=== PATIENT | male | born 1960 | race Caucasian/White ===

== ENCOUNTER → 2020-05-22 09:22 | Outpatient (BNVA) | payer MEDICAID, SELFPAY | PROVIDERS: PCP Nurse Practitioner Family; Referring Provider Nurse Practitioner Family; Visit Provider Urology | DX: N43.3 Hydrocele, unspecified (principal); K40.90 Unilateral inguinal hernia, without obstruction or gangrene, not specified as recurrent | CPT/HCPCS: 81001 ==

== ENCOUNTER 2020-05-23 06:37 | Outpatient (CLI) | payer MEDICAID, SELFPAY ==
--- NOTE | 2020-05-23 | US_ITS ---
WS: [id number] ULTRASOUND ABDOMEN LIMITED CLINICAL INFORMATION: CHOLESTEROLOSIS OF GALLBLADDER COMPARISON: None. FINDINGS: Liver Size: Normal. Craniocaudal length: 11.9 cm. Echogenicity: Normal. Surface nodularity: None. Mass (size and location): None. Bile ducts Intrahepatic ducts: Normal. Common bile duct diameter: 0.3 cm. Gallbladder Sludge or polyps Gallbladder wall thickening: None. Pericholecystic fluid: None. Sonographic Webb sign: Absent. Pancreas Normal as visualized. Right kidney: Normal. Hydronephrosis: None. Size: 10.5 cm x 4.9 cm x 4.7 cm. Abdominal aorta and IVC Visualized portions are normal. Ascites: None. US/US gall bladder 30003 IMPRESSION: 1. Liver is normal. 2. Gallbladder is contracted. 3. Gallbladder sludge with sludge balls or small polyps. No dense shadowing ch olelithiasis. 4. Normal common bile duct. 5. Normal right kidney.
--- NOTE | 2020-05-23 07:03 | US_ITS ---
WS: [id number] SCROTAL ULTRASOUND EXAMINATION CLINICAL INFORMATION: HYDROCELE,HERNIA COMPARISON: None. FINDINGS: TESTES Normal in size and echotexture, without focal lesion. Color Doppler: Normal color Doppler flow pattern. Right testes size: 3.0 cm x 2.4 cm x 2.6 cm. Left testes size: 3.8 cm x 2.7 cm x 2.4 cm. EPIDIDYMIDES Normal in size and echotexture, without focal lesion. Color Doppler: Normal color Doppler flow pattern. Right epididymis size: 2.0 cm x cm x cm. Left epididymitis size: 1.0 cm x cm x cm. HYDROCELE Very large right hydrocele measuring 8.0 x 4.6 x 10.8 cm. VARICOCELE None. OTHER FINDINGS None. US/US scrotum 00469 IMPRESSION: 1. Very large right hydrocele measuring 8.0 x 4.6 x 10.8 cm. 2. Testicles are otherwise unremarkable.
== END 2020-05-23 06:38 | disposition home or self-care (01) ==
PROVIDERS: PCP Nurse Practitioner Family; Visit Provider Urology
DX: N43.3 Hydrocele, unspecified (principal); K82.4 Cholesterolosis of gallbladder
CPT/HCPCS: 76705; 76870

== ENCOUNTER → 2020-05-26 09:44 | Outpatient (BNVA) | payer MEDICAID, SELFPAY | PROVIDERS: PCP Nurse Practitioner Family; Visit Provider Urology | DX: N43.3 Hydrocele, unspecified (principal); K40.90 Unilateral inguinal hernia, without obstruction or gangrene, not specified as recurrent | CPT/HCPCS: 81001 ==

== ENCOUNTER 2020-06-19 09:27 | Day surgery (SDC) | payer MEDICAID, SELFPAY ==
[2020-06-16 11:54] VITALS: BMI 22.2
[2020-06-19 09:56] VITALS: BP 162/92; PULSE 75; RESP 16; TEMP 36.9; O2SAT 97
[2020-06-19] MEDS: sodium chloride 0.9% 1,000 ML 30 ML IV (10:12)
--- NOTE | 2020-06-19 10:15 | ANES.PREANE2 ---
Pre-Anesthetic Assessment Pre-Anesthetic Assessment: Height/Weight: Height 1.78 m Weight 70.307 kg Temp Pulse Resp BP Pulse Ox 98.4 F 75 16 162/92 97 06/19/20 09:56 06/19/20 09:56 06/19/20 09:56 06/19/20 09:56 06/19/20 09:56 Preop Diagnosis: Symptomatic right hydrocele Proposed Procedure: Operation Date: 06/19/20 12:00 Proposed Procedures p Laparoscopic Poss Open Inguinal Hernia Repair w/Mesh 37590 K40.90(Not Applicable) - Xavier Lorenzo MD s Hydrocele Repair(Right) - James Gray MD Familial anesthetic complications: None Was Beta Jean taken within 24 hours: N/A Last intake: Intake Last Liquid Date 06/18/20 Last Liquid Time 16:00 Last Solid Date 06/18/20 Last Solid Time 16:00 Social: Social History: Tobacco Comment: smoked this morning Exam: Pre-Anes Outpt Exam: alert, oriented x 3, clear to auscultation bilaterally and regular rate & rhythm Additional Exam Findings (including area of procedure): B/L wheezing Airway: Cervical ROM: WNL MP: 1 Dentition: Other (edentulous) Pulmonary: Pulmonary: SOB CV/HEM: CV/HEM: CAD (4 years ago - not on blood thinners), HTN and ND Neuropsych: Neuropsych: Neuropathy Anesthetic Plan: ASA status: 2 Anesthesia: General Risk of > 500 ml blood loss (7ml/kg in children): No Meds/Allergies Current Medications: Current Medications Generic Name Dose Route Start Last Admin Trade Name Freq PRN Reason Stop Dose Admin Sodium Chloride 1,000 mls @ 30 ml s/hr 06/19/20 07:30 06/19/20 10:12 Sodium Chloride 0.9% IV 06/20/20 07:29 30 mls/hr .Q24H PHILLIP Administration PFSH Anesthesia PFSH: Medical History COPD (chronic obstructive pulmonary disease) Hypertension Left inguinal hernia Right hydrocele Surgical History H/O circumcision H/O heart artery stent H/O left knee surgery Hx of tonsillectomy Family History Father Cancer LUNG Hypertension Denies family history of Anesthesia complication Bleeding disorder Social History Smoking and tobacco status: current every day smoker cigarettes Alcohol intake: former Lives independently: Yes Marital status: Current occupational status: disabled History of recent travel: No Data Anesthesia Cardiac Studies: No Data to Display
[2020-06-19] MEDS: vancomycin 1,000 MG in sodium chloride 0.9% 250 ML 250 MG IV (11:32)
--- NOTE | 2020-06-19 11:48 | W.PM.OPSUD ---
Surgery/Procedure H&P Update DATE OF PROCEDURE: June 19, 2020 DATE H&P PERFORMED: 05/26/20 H&P UPDATE INFORMATION: I have reviewed H&P completed within last 30 days, I have examined patient prior to procedure and No changes to prior documentation PREOP DIAGNOSIS: Symptomatic right hydrocele PLANNED PROCEDURE: Operation Date: 06/19/20 12:00 Proposed Procedures p Laparoscopic Poss Open Inguinal Hernia Repair w/Mesh 99395 K40.90(Not Applicable) - Xavier Lorenzo MD s Hydrocele Repair(Right) - James Gray MD
--- NOTE | 2020-06-19 12:05 | P.HPUD_ITS ---
Surgery/Procedure H&P Update DATE OF PROCEDURE: June 19, 2020 DATE H&P PERFORMED: 05/26/20 H&P UPDATE INFORMATION: I have reviewed H&P completed within last 30 days, I have examined patient prior to procedure, No changes to prior documentation and H&P is in [facility] EMR on date indicated CHANGES TO PREVIOUS DOCUMENTATION: Doing concurrently with Dr. Lorenzo for his left inguinal hernia repair. PREOP DIAGNOSIS: Symptomatic right hydrocele PLANNED PROCEDURE: Operation Date: 06/19/20 12:00 Proposed Procedures p Laparoscopic Poss Open Inguinal Hernia Repair w/Mesh 98736 K40.90(Not Applicable) - Xavier Lorenzo MD s Hydrocele Repair(Right) - James Gray MD
--- NOTE | 2020-06-19 12:06 | PM.OP ---
Operative Report Date of procedure: June 19, 2020 Pre-op Diagnosis: Symptomatic right hydrocele Post-op Diagnosis: Multiple large right spermatocele Procedure Done: Spermatocele ectomy x3, right Pathology: none sent Surgeon: Isaac Anesthesia: General Estimated blood loss: 25 cc Urine output: Not measured Complications: None Condition: stable Disposition: other (Turned over to Dr. Lorenzo for his portion of the procedure) Brief History: Demetrius is a very pleasant 60-year-old white male who presented to me with a history of dramatic right hydrocele increasingly over several years. Ultrasound showed no evidence of testicular parenchymal pathology and he ultimately elected to go ahead and proceed with surgical repair. He also has been known to have a left inguinal hernia that would periodically become incarcerated with pain. Dr. Lorenzo is scheduled to do a repair of that hernia under the same anesthesia following my completion of the hydrocele repair. Procedure: After routine preoperative evaluation examination and obtaining of informed consent he was taken to the operating suite on 06/19/2020 where general anesthesia was administered without difficulty after appropriate timeout was performed, SCDs confirmed to be functioning, preoperative antibiotics administered, beta-davian protocol confirmed. Prepped and draped in usual sterile fashion in supine position pain careful attention to avoiding pressure points. A median raphae incision was made over the right hemiscrotal contents (hydrocele) and the incision was taken down through the skin dartos down to the tunica vaginalis. A pocket small enough to accommodate the testicle was made in the superficial space external to the tunica vaginalis. The tunica vaginalis was opened large enough to anirudh the testicle through it. Careful inspection revealed no significant pathology. Tunica vaginalis what was discovered was a spermatocele sac there was excised down to the base. He had 2 other spermatoceles that were excised with combination of sharp and blunt dissection. There is actually no hydrocele. Careful inspection revealed complete hemostasis. The testicle was then introduced into anatomic position and copiously irrigated with saline solution. The incision was closed in layers utilizing 3-0 Vicryl for the dartos subcutaneous layer interrupted fashion and then subcuticular 4-0 Monocryl for the skin. Exofin skin glue was then applied. Scrotal support was placed at the completion of Dr. Lorenzo's procedure. He was turned over to Dr. Lorenzo for his hernia repair. PLANS: 1. Follow-up in 2 to 3 weeks for postop check
[2020-06-19 14:23] VITALS: BP 142/90; PULSE 93; RESP 20; TEMP 36.3; O2SAT 97
[2020-06-19 14:30] VITALS: BP 151/97; PULSE 84; RESP 27; O2SAT 97
[2020-06-19 14:35] VITALS: BP 161/94; PULSE 89; RESP 22; TEMP 36.4; O2SAT 97
[2020-06-19 14:49] VITALS: BP 155/95; PULSE 84; RESP 18; TEMP 36.1; O2SAT 94
--- NOTE | 2020-06-19 14:56 | PM.OP ---
Operative Report Date of procedure: June 19, 2020 Pre-op Diagnosis: Symptomatic reducible left inguinal hernia Post-op Diagnosis: Direct and indirect left inguinal hernia Procedure Done: Laparoscopic total extraperitoneal repair of left direct and indirect inguinal hernia with SurgiMax 3D 15 x 11 cm mesh Pathology: none sent Surgeon: Xavier Lorenzo Anesthesia: General Estimated blood loss (mL): 20 Condition: stable Disposition: PACU Procedure: The patient was taken to the operating room. After IV antibiotic was administered, the abdomen was prepped and draped in a sterile manner. Using a 15 blade, a 1.0 cm transverse incision was made infraumbilically on the left side. Subcutaneous tissue was divided using electrocautery and the anterior rectus sheath divided using an 11 blade. The rectus muscle was retracted laterally and the extraperitoneal space identified. A 11 mm port was placed and 12 mm of pneumoperitoneum was created. A 10 mm 30? scope was introduced and the retrorectus space was opened using the camera up to the pubic symphysis and 5 mm ports were placed in the midline, one 2-fingerbreadths above the pubic symphysis and the other midway between these two ports under direct visualization. Blunt dissection was carried out to open up the tissue in the midline and to the pubic symphysis, which was identified. The dissection was then carried laterally where the iliopubic tract was identified. There was no femoral or obturator hernia noted. There was a direct hernia noted which was partially incarcerated and reduced. The inferior epigastric artery was identified and dissection was carried posterior to it and laterally, the space was opened up to the level of the umbilicus superior to the anterior superior iliac spine. I then proceeded to dissect out the spermatic cord and the indirect hernial sac was reduced . 15 x 11cm SurgiMax 3D mesh was rolled and introduced through the 10 mm port and then rolled laterally and apposed well against the abdominal wall to cover the myopectineal orifice completely. 10 Cc of 0.5% Marcaine was infiltrated into the preperitoneal space. The extraperitoneal space was desufflated under direct visualization to ensure no slippage of hernial sac under the mesh. All ports were removed, the anterior rectus fascia at the infraumbilical port closed using figure of eight 0 Vicryl sutures, subcutaneous tissue approximated using 3-0 Vicryl sutures and skin at all three port sites were closed using running subcuticular 4-0 Monocryl sutures and Dermabond. 10 mL of 0.5% Marcaine was infiltrated at the port sites. The patient was stable throughout the procedure.
[2020-06-19 15:35] VITALS: BP 145/95; PULSE 80; RESP 18; O2SAT 96
[2020-06-19] MEDS: HYDROcodone-acetaminophen 5-325 mg Tablet 1 TAB PO (15:45)
== END 2020-06-19 16:15 | disposition home or self-care (01) ==
PROVIDERS: Urology; PCP Nurse Practitioner Family; Visit Provider Surgery
PROC: (CPT 49650; principal; 2020-06-19 12:00)
PROC: (CPT 55060; 2020-06-19 12:00)
DX: N43.3 Hydrocele, unspecified (principal); N43.42 Spermatocele of epididymis, multiple; I25.10 Atherosclerotic heart disease of native coronary artery without angina pectoris; J44.9 Chronic obstructive pulmonary disease, unspecified; I10 Essential (primary) hypertension; I25.2 Old myocardial infarction; G62.9 Polyneuropathy, unspecified; F17.210 Nicotine dependence, cigarettes, uncomplicated
CPT/HCPCS: 54840; 12345; 88304; C1781; J0131; J1100; J2405; J2704; J2710; J2765; J3010; J3370; J3490; J7030; J7050

== ENCOUNTER 2020-11-21 12:35 | Outpatient (CLI) | payer MEDICAID, SELFPAY ==
--- NOTE | 2020-11-21 12:56 | ECG_ITS ---
[facility] Test Date: 2020-11-21 Pat Name: Demetrius Hinkle Department: Room: Gender: Male Employee [employer] Rn: : 1960 Requested By: Venessa Pisano Order Number: [id number] Deisy MD: Venessa Pisano M.D. Interpretive Statements NAME OF STUDY: TREADMILL STRESS TEST INDICATION: CAD, CDL clearance Baseline blood pressure of 136/80 mm Hg, heart rate 62 beats per minute. EKG showed normal sinus rhythm with normal ST and T's. The patient exercised for 3 minutes on a standard Brennen protocol. Patient attained a maximum heart rate of 157 beats per minute( 98 % of the maximum predicted heart rate) with a blood pressure at the peak exercise of 173/80 mm Hg. The EKG at the peak exercise revealed sinus tachycardia with 1/2 -[address] depression in inferolateral leads. This does not meet diagnostic crieteria for ischemia. Patient did not have any chest pain or any significant arrhythmis with the exercise. During the recovery phase, there were no new changes. Blood pressure at the end of the recovery phase was 168/87 mm Hg with a heart rate of 93 beatsp er minute. CONCLUSION: 1. Normal EKG response to treadmill exercise. 2. No exercise-induced chest pain or cardiac arrhythmia. 3. Decreased exercise tolerance, attained a maximum of 4.6 METs. 4. Baseline normal blood pressure with normal response to exercise. Electronically Signed On 11-23-2020 13:19:39 STATOR CONNECTOR by Venessa Pisano M.D. [id number]
[2020-11-21 12:59] VITALS: BMI 23.9
[2020-11-21 13:31] VITALS: BP 139/88; PULSE 98
== END 2020-11-21 12:36 | disposition home or self-care (01) ==
LOC: CDL 12:36
PROVIDERS: PCP Nurse Practitioner Family; Visit Provider Internal Medicine Cardiovascular Disease
DX: I25.10 Atherosclerotic heart disease of native coronary artery without angina pectoris (principal)
CPT/HCPCS: 93017

== ENCOUNTER 2020-11-29 08:08 | Outpatient (CLI) | payer MEDICAID, SELFPAY ==
[2020-11-29 08:43] VITALS: BMI 22.9
--- NOTE | 2020-11-29 08:43 | NMCV_ITS ---
NM yamil perf SPECT r/s* [id number] Demetrius Hinkle Age: 60 Gender: M : 1960 Exam Date: 11/29/2020 09:59 Ordering Phys: Venessa Pisano MD ([email or web address]) Technologist: NARAYAN Powell Exam Location: [facility] Indications: CAD STRESS TEST Please see separate stress test report in [facility] for full findings IMAGE PROTOCOL Rest/Stress 1 Lexiscan Day Radiopharmaceutical Dose (mCi) Administration Site Administered by Rest: Tc-99m 10.9 IV NARAYAN Amato Sestamibi Stress:Tc-99m 32.7 IV NARAYAN Amato Sestamibi Rest: 29-Nov-2020 60 Discovery 630 Stress: 29-Nov-2020 30 Discovery 630 0.4mg Lexiscan. Images obtained in supine and prone position. SPECT RESULTS Technical Quality: Excellent Raw Data Analysis: Normal Image Corrections: No attenuation or motion correction applied Summed Stress Score: 4 Summed Rest Score: 0 Summed Difference Score: 4 PERFUSION FINDINGS Small sized perfusion abnormality of mild severity of mid to apical inferior navarro on rest images with subtle reversibility in supine stress images with slightly improved tracer uptake in prone stress images. This is likely suggestive of diaphragmatic/subdiaphragmatic attenuation artifact. FUNCTIONAL RESULTS (calculated via Gated SPECT) Stress Image LV EF (%): 60 Stress EDV (mL):113 TID: 1.21 Stress ESV (mL):45 FUNCTIONAL FINDINGS: The left ventricle is normal in size. Transient Ischemia Dilatation of 1.2. There is normal left ventricular systolic function. The left ventricular ejection fraction is normal with a value of 60%. There is normal left ventricular wall thickening. Normal end-diastolic end-systolic volumes. IMPRESSIONS 1. Small sized perfusion abnormality of mild severity of mid to apical inferior navarro with subtle reversibility in mid inferior wall with somewhat improved tracer uptake in prone stress images. 2. This is likely suggestive of diaphragmatic/subdiaphragmatic attenuation artifact. However old myocardial infarction in right coronary artery territory with very small immanuel-infarct ischemia cannot be completely excluded based on the study. 3. Overall left ventricular systolic function is normal without regional wall motion abnormalities, LVEF= 60%. 4. Transient ischemic dilation index mildly elevated at 1.2. This may represent hypertensive response/subendocardial ischemia. 5. No prior similar studies to compare. Venessa Pisano MD (Electronically Signed) Final Date: 29 November 2020 13:38 Amended: 29 November 2020 13:46 C
--- NOTE | 2020-11-29 08:43 | ECG_ITS ---
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 Interpretive Statements NAME OF STUDY: LEXISCAN SESTAMIBI STRESS TEST INDICATION: CDL clearance, abnormal ETT PROCEDURE: At the baseline, the blood pressure was 117/86 mmHg with a heart rate of 55 bpm. The electrocardiogram showed normal sinus rhythm, normal axis with normal ST and T's. The Lexiscan was infused over a period of 20 seconds. A total of 0.4 milligrams of Lexiscan was infused. The stress phase was continued for a total of 5 minutes. Heart rate at the end of the stress phase was 97 with a blood pressure 137/73 mmHg and oxygen saturation 98%. The EKG at the peak infusion revealed sinus rhythm with no significant ST-T wave changes. Sestamibi was injected 20 seconds after the Lexiscan infusion. Blood pressure at the end of the recovery phase was 130/66 mmHg, oxygen saturation 98% with a heart rate of 85 beats per minute. CONCLUSION: 1. Normal EKG response to LexiScan infusion. 2. No LexiScan induced chest pain or cardiac arrhythmia. 3. Normal blood pressure and heart rate response. 4. Sestamibi/sestamibi perfusion scan pending; see separate report. Electronically Signed On 11-29-2020 13:03:56 OPERATING TABLE ASSEMBLER by Venessa Pisano M.D. [id number]
[2020-11-29] MEDS: regadenoson 0.4 Mg/5 ml Syringe IVP (10:28)
[2020-11-29 10:40] VITALS: BP 130/66; PULSE 92
== END 2020-11-29 08:09 | disposition home or self-care (01) ==
LOC: RAD 08:11 → CDL 08:42
PROVIDERS: PCP Nurse Practitioner Family; Visit Provider Internal Medicine Cardiovascular Disease
DX: I25.10 Atherosclerotic heart disease of native coronary artery without angina pectoris (principal)
CPT/HCPCS: 78452; 93017; A9500; J2785

== ENCOUNTER 2023-05-16 06:51 | Emergency (ER) | payer MEDICAID, SELFPAY ==
[2023-05-16 07:01] VITALS: BP 137/90; PULSE 84; RESP 21; O2SAT 96
--- NOTE | 2023-05-16 07:13 | XR_ITS ---
WS: [id number] XR ribs RT mn 3V w CXR1V [id number] REASON FOR EXAM: right rib pain after fall FINDINGS: Marked tortuosity and ectasia of the thoracic aorta. Heart size is within normal limits. Chronic interstitial changes in the lung bases. No acute pulmonary parenchymal or pleural abnormality. Mild thoracic scoliosis. No acute rib fracture identified. XR/XR ribs RT mn 3V w CXR1V [id number] IMPRESSION: No acute abnormality.
--- NOTE | 2023-05-16 07:13 | CT_ITS ---
WS: [id number] CT HEAD NONCONTRAST HISTORY: fall with LOC TECHNIQUE: Contiguous axial imaging performed through the brain in 2.5 mm imaging. Bone and soft tiss ue windows. Sagittal and coronal reformats reviewed. All CT scans at [facility] use at least one of these dose optimization techniques: automated exposure control; mA and/or kV adjustment per pa tient size (includes targeted exams where dose is matched to clinical indication); or iterative recon struction. DLP: 974.37 mGy.cm COMPARISON: None available. No acute intracranial hemorrhage, midline shift or mass effect. Mild atrophy and small vessel ischemic changes. Ventricles: Normal size with no hydrocephalus. Dural venous sinuses are dense but this is probably physiologic or related to hydration status. Paranasal sinuses: As visualized are clear. Mastoid air cells: Well pneumatized. Calvarium and scalp: Skull is intact with no soft tissue edema or swelling. CT/CT head wo con* [id number] IMPRESSION: 1. No acute intracranial hemorrhage or edema. 2. Mild atrophy and small vessel ischemic disease.
--- NOTE | 2023-05-16 07:14 | W.ED.GENADLT ---
HPI - General Adult General: Chief complaint: General Medical Stated complaint: Right side pain, Hurts to breath Time Seen by Provider: 05/16/23 07:04 History of Present Illness: Patient is a 63-year-old male that comes to the ED with right rib pain. Past medical history of COPD and hypertension. Approximately 2 days ago patient was jumping off a 20 to 30 foot ledge into some water. Patient says he slipped while going to jump and he ended up rolling down the side of the ledge and into the water. He denies any free fall. He reports brief loss of consciousness and states that he woke up when he hit the water. Since fall injury he has had right rib pain that he rates a 9 out of 10. Pain worsens if he takes deep breath or coughs. He has not had anything for pain before coming to the ED. Denies any headache, vision changes or neurological symptoms such as numbness tingling or weakness to 1 side of face or body. Associated symptoms: Deny chest pain, dyspnea, headache(s), nausea, rash, palpitations or vomiting Review of Systems Const: Denies: fever(s), chills or fatigue Eyes: Denies: change in vision or eye discomfort ENMT: Denies: throat pain, odynophagia, nasal discharge or nasal congestion Card: Denies: chest pain, palpitations, edema, swelling of feet/ankles, dyspnea on exertion or orthopnea Resp: Reports: wheezing and pain on inspiration (Right-sided pain); Denies: dyspnea, productive cough or non-productive cough GI: Denies: abdominal pain, nausea, vomiting, diarrhea, constipation or hematochezia : Denies: flank pain, difficulty urinating, dysuria or hematuria Musc: Reports: other (Right rib pain); Denies: neck pain, back pain or extremity swelling Skin/Breast: Denies: rash or new lesions Neuro: Reports: other (Head injury with positive loss of consciousness); Denies: headache(s), numbness in extremities or weakness in extremities PFSH ED PFSH: Medical History COPD (chronic obstructive pulmonary disease) Coronary artery disease Hyperlipidemia Hypertension Left inguinal hernia Right hydrocele Surgically repaired June 2020. No complications. Did well no further work-up indicated Smoker Surgical History H/O circumcision H/O heart artery stent H/O left knee surgery History of hydrocelectomy Hx of tonsillectomy Family History Father Cancer LUNG Hypertension Denies family history of Anesthesia complication Bleeding disorder Social History Smoking and tobacco status: current every day smoker cigarettes Alcohol intake: former Substance/Drug Use: current Substance/Drug use frequency: daily Lives independently: Yes Marital status: Current occupational status: disabled Physical Exam Const: COMMON NORMALS: no acute distress, patient oriented x3 and alert GENERAL APPEARANCE: cooperative HENMT: COMMON NORMALS: normocephalic HEAD & SCALP: normocephalic MOUTH: Normal oral and palatal mucosa present THROAT: posterior oropharynx normal and uvula midline Eye: COMMON NORMALS: Equal, round and reactive pupils present and EOMs intact bilaterally GENERAL EYE: appearance normal, both eyes and all related structures PUPIL: Yes Equal, round and reactive pupils present Neck/C-Spine: COMMON NORMALS: supple GENERAL: Yes normal visual inspection Lymph: LYMPHATIC: no lymphadenopathy noted Chest: CHEST: Yes tenderness rib right mid-axillary line involving the 5th rib, involving the 6th rib and involving the 7th rib Resp: COMMON NORMALS: normal respiratory effort, No retractions and No use of accessory muscles AUSCULTATION: wheezes expiratory wheezes and throughout Cardio: COMMON NORMALS: regular rate, regular rhythm, S1 normal heart sound present, S2 normal heart sound present, No gallops present (Cardio), No clicks present (Cardio), No murmurs present (Cardio) and Peripheral pulses 2+ throughout RATE: regular rate RHYTHM: regular rhythm HEART SOUNDS: S1 normal heart sound present and S2 normal heart sound present PERIPHERAL PULSES: Peripheral pulses 2+ throughout GI: COMMON NORMALS: Normal to inspection, nondistended, normoactive bowel sounds present, Soft to palpation, non-tender and no masses PALPATION: Yes Soft to palpation : COMMON NORMALS: Yes no CVA tenderness BLADDER/KIDNEY EXAM: Yes no CVA tenderness Back/Pelvis: COMMON NORMALS: no CVA tenderness Extremity: GENERAL: Yes normal exam except as noted Neuro: COMMON NORMALS: patient oriented x3, CN's II-XII intact bilaterally, moves all extremities, no focal motor deficits and no sensory deficits noted SENSORIUM/ORIENTATION: Yes alert SENSORY EXAM: Yes extremities (intact) MOTOR EXAM: 5/5 motor strength present throughout Skin: COMMON NORMALS: no rashes or lesions noted GENERAL SKIN EXAM: no rashes or lesions noted and dry skin Course Vital Signs: Vital signs: Vital Signs Pulse Rate 103 H 05/16/23 10:09 Respiratory Rate 26 H 05/16/23 10:09 Blood Pressure 162/117 05/16/23 10:09 Pulse Oximetry 96 05/16/23 10:09 Oxygen Delivery Me thod Room Air 05/16/23 08:32 [facility] - General Adult Medical Decision Making Patient is a 63-year-old male that comes to the ED with right rib pain. Past medical history of COPD and hypertension. Approximately 2 days ago patient was jumping off a 20 to 30 foot ledge into some water. Patient says he slipped while on ledge and he ended up rolling down the side of the ledge and into the water. He denies any free fall. He reports brief loss of consciousness and states that he woke up when he hit the water. Since fall injury he has had right rib pain that he rates a 9 out of 10. Pain worsens if he takes deep breath or coughs. He has not had anything for pain before coming to the ED. Denies any headache, vision changes or neurological symptoms such as numbness tingling or weakness to 1 side of face or body. Vitals are stable. Patient has some right-sided rib tenderness to palpation. Expiratory wheezing throughout lungs bilaterally. Neuro exam shows no deficits. Rest of exam is benign. CBC and CMP are unremarkable. EKG shows sinus rhythm, [address] segment elevation or depression seen. CT of head showed no acute findings. Right rib x-ray showed no acute rib fractures or acute findings in lungs. Patient was given pain meds here in the ED and a DuoNeb breathing treatment. He was stable for discharge home and diagnosed with right rib pain and minor head injury with loss of consciousness. He was discharged home with incentive spirometer and prescriptions for albuterol inhaler, hydrocodone, ibuprofen and a muscle relaxer. Strict return to ED precautions given. Follow-up with PCP in the next week for reevaluation. Patient understood and agreed with plan. Lab Data I reviewed the patient's lab results. 05/16/23 08:41 05/16/23 08:[address] 05/16/23 07:13 IMPRESSION: 1. No acute intracranial hemorrhage or edema. 2. Mild atrophy and small vessel ischemic disease. Ribs X-Ray 05/16/23 07:13 IMPRESSION: No acute abnormality. Laboratory Results WBC 6.2 10^3/uL (4.0-10.0) 05/16/23 08:41 RBC 5.89 10^6/uL (4.1-5.3) H 05/16/23 08:41 Hgb 19.1 g/dL (11.7-16.6) H 05/16/23 08:41 Hct 56.0 % (42.0-52.0) H 05/16/23 08:41 MCV 95.1 fl (80-94) H 05/16/23 08:41 MCH 32.4 pg (28.0-34.0) 05/16/23 08:41 MCHC 34.1 g/dL (30.0-36.0) 05/16/23 08:41 RDW 18.1 % (12.1-15.1) H 05/16/23 08:41 Plt Count 178 10^3/cmm (130-400) 05/16/23 08:41 MPV 9.5 fL (7.4-10.4) 05/16/23 08:41 Neut % (Auto) 77.2 % 05/16/23 08:41 Lymph % (Auto) 12.7 % 05/16/23 08:41 Slope % (Auto) 8.4 % 05/16/23 08:41 Eos % (Auto) 0.0 % 05/16/23 08:41 Baso % (Auto) 0.6 % 05/16/23 08:41 Neut # (Auto) 4.75 10^3/uL (1.8-7.7) 05/16/23 08:41 Lymph # (Auto) 0.8 10^3/uL (0.8-4.8) 05/16/23 08:41 Slope # (Auto) 0.5 10^3/uL (0.2-0.9) 05/16/23 08:41 Eos # (Auto) 0.0 10^3/uL (0.0-0.8) 05/16/23 08:41 Baso # (Auto) 0.0 10^3/uL (0.0-0.1) 05/16/23 08:41 Nucleated RBC % (auto) 0 % 05/16/23 08:41 Nucleated RBCs # 0.0 /100WBC 05/16/23 08:41 Sodium 138 mmol/L (136-145) 05/16/23 08:41 Potassium 4.4 mmol/L (3.5-5.1) 05/16/23 08:41 Chloride 100 mmol/L (98-107) 05/16/23 08:41 Carbon Dioxide 23 mmol/L (22-29) 05/16/23 08:41 Anion Gap 19.4 (5-19) H 05/16/23 08:41 BUN 4 mg/dL (8-23) L 05/16/23 08:41 Creatinine 0.8 mg/dL (0.7-1.2) 05/16/23 08:41 GFR Calculation 97.6 mL/min (90-130) 05/16/23 08:41 Glucose 109 mg/dL (65-115) 05/16/23 08:41 Calculated Osmolality 283 mOsm/kg (285-295) L 05/16/23 08:41 Calcium 8.6 mg/dL (8.5-10.5) 05/16/23 08:41 EKG Data EKG 1: EKG interpretation date: 05/16/23 Interpretation: Sinus rhythm, 69 bpm, no ST segment elevation or depression seen. Computer generated interpretation: Head CT 05/16/23 07:13 IMPRESSION: 1. No acute intracranial hemorrhage or edema. 2. Mild atrophy and small vessel ischemic disease. Ribs X-Ray 05/16/23 07:13 IMPRESSION: No acute abnormality. Discharge Plan Discharge Patient Disposition: Home Clinical Impression: Rib pain on right side Minor head injury with loss of consciousness Qualifiers: Encounter type: initial encounter Qualified Code(s): S06.9X9A - Unspecified intracranial injury with loss of consciousness of unspecified duration, initial encounter Condition: Stable Prescriptions: New methocarbamol 750 mg tablet 750 mg PO TID PRN (Reason: Muscle spasms and pain) Qty: 30 0RF albuterol sulfate 90 mcg/actuation HFA aerosol inhaler 2 inh inhalation Q6H PRN (Reason: shortness of breath or wheezing) Qty: 8.5 0RF ibuprofen 800 mg tablet 800 mg PO TID PRN (Reason: pain) Qty: 30 0RF No Action naproxen sodium 220 mg capsule 220 mg PO Q12H isosorbide mononitrate 30 mg tablet extended release 24 hr 30 mg PO DAILY aspirin 81 mg tablet,delayed release (DR/EC) 81 mg PO DAILY metoprolol tartrate 25 mg tablet 25 mg PO BID atorvastatin 40 mg tablet 40 mg PO DAILY lisinopril 2.5 mg tablet 2.5 mg PO DAILY Discharge Orders: Discharge ED (Routine); Ordered 05/16/23 Ordered By: Napoleon Hathaway Referrals: Jens,CORINA LaceyP [Primary Care Provider] - Discharge Diet: Regular Discharge Activity: Increase activity as tolerated Patient Instructions: Head Injury (ED), Opioid Safety, Fractures - Rib Activity Restrictions/Additional Instructions: Follow-up with medical provider as directed in the next 5 to 7 days for reevaluation. Use incentive spirometer multiple times every couple hours throughout the day to help prevent pneumonia. Take medications as prescribed. Return to the ER or your medical provider if condition worsens. Please read and understand discharge instructions. Thank you for choosing [facility] for your healthcare needs today. Please realize this is an emergency room and that we are providing you with a medical screening exam and this may not be complete and all inclusive of all the testing and or work up that you may need to determine your ailment or severity of your illness. It is very important that you follow up as instructed or that you return to the Emergency Department should you have concerns or if your condition changes or worsens in any way. Coding Level of Care Code ED Windows Application Administrator for Elin Larios
[2023-05-16] MEDS: morphine 4 mg/mL SDV 1 mL IM (07:37)
[2023-05-16 07:47] VITALS: BP 150/116; PULSE 90; RESP 18; O2SAT 95
--- NOTE | 2023-05-16 08:10 | ECG_ITS ---
[facility] Test Date: 2023-05-16 Pat Name: Demetrius Hinkle Department: Room: Gender: Male Target Developer: : 1960 Requested By: Napoleon Hathaway Order Number: [id number] Olivas MD: Daniel Morrow M.D. Measurements Intervals [place] Rate: 69 P: 52 RI: 128 QRS: 72 QRSD: 90 T: 59 QT: 376 QTc: 405 Interpretive Statements SINUS RHYTHM WITH SINUS ARRHYTHMIA No previous ECG available for comparison Electronically Signed On 05-16-2023 16:14:56 CDT by Daniel Morrow M.D. [id number]
[2023-05-16] MEDS: ipratropium-albuterol 3 mL Neb 6 ML INHALATION (08:22)
[2023-05-16 08:25] VITALS: PULSE 95; RESP 18; O2SAT 97
[2023-05-16 08:32] VITALS: BP 164/104; PULSE 73; RESP 22; O2SAT 96
[2023-05-16 08:35] VITALS: PULSE 73
[2023-05-16] MEDS: methocarbamol 750 mg Tablet PO (08:42)
[2023-05-16 08:53] LABS: Basophils % 0.6 %; Hemoglobin 19.1 g/dL (11.7-16.6); Lymphocytes # 0.8 10^3/uL (0.8-4.8); Lymphocytes % 12.7 %; Mean Corpuscular HGB Conc 34.1 g/dL (30.0-36.0); Mean Corpuscular Hemoglobin 32.4 pg (28.0-34.0); Mean Corpuscular Volume 95.1 fl (80-94); Mean Platelet Volume 9.5 fL (7.4-10.4); Monocytes # 0.5 10^3/uL (0.2-0.9); Monocytes % 8.4 %; Neutrophils # 4.75 10^3/uL (1.8-7.7); Neutrophils % 77.2 %; Nucleated Red Blood Cells % 0 %; Platelet Count 178 10^3/cmm (130-400); Red Blood Count 5.89 10^6/uL (4.1-5.3); Red Cell Distribution Width 18.1 % (12.1-15.1); White Blood Count 6.2 10^3/uL (4.0-10.0)
[2023-05-16 09:11] LABS: Anion Gap 19.4 (5-19); Blood Urea Nitrogen 4 mg/dL (8-23); Calcium 8.6 mg/dL (8.5-10.5); Carbon Dioxide 23 mmol/L (22-29); Chloride 100 mmol/L (98-107); Creatinine Clr Calc Pharmacy 92.5085; Glomerular Filtration Rate 97.6 mL/min (90-130); Glucose 109 mg/dL (65-115); Osmolality Calculated 283 mOsm/kg (285-295); Potassium 4.4 mmol/L (3.5-5.1); Sodium 138 mmol/L (136-145)
[2023-05-16] MEDS: oxyCODONE-APAP 5-325 mg Tablet 1 TAB PO (09:34)
[2023-05-16] MEDS: ondansetron 2 mg/ML SDV 2 mL 4 MG IM (09:47)
[2023-05-16 10:09] VITALS: BP 162/117; PULSE 103; RESP 26; O2SAT 96
== END 2023-05-16 10:13 | disposition home or self-care (01) ==
PROVIDERS: Emergency Provider Physician Assistant; PCP Nurse Practitioner Family
DX: S06.899A Other specified intracranial injury with loss of consciousness of unspecified duration, initial encounter (principal); R07.81 Pleurodynia; W15.XXXA Fall from cliff, initial encounter; Z79.82 Long term (current) use of aspirin; F17.210 Nicotine dependence, cigarettes, uncomplicated; J44.9 Chronic obstructive pulmonary disease, unspecified; I25.10 Atherosclerotic heart disease of native coronary artery without angina pectoris; E78.5 Hyperlipidemia, unspecified; I10 Essential (primary) hypertension
CPT/HCPCS: 36415; 70450; 71101; 80048; 85025; 93005; 94640; 96372; 99285; J2270; J2405

== ENCOUNTER → 2024-08-06 08:57 | Outpatient (BNVA) | payer MEDICAID, SELFPAY | PROVIDERS: PCP Nurse Practitioner Family; Referring Provider Nurse Practitioner Family; Visit Provider Surgery | DX: K92.2 Gastrointestinal hemorrhage, unspecified (principal); R63.4 Abnormal weight loss; K52.9 Noninfective gastroenteritis and colitis, unspecified | CPT/HCPCS: 99204 ==

== ENCOUNTER 2024-08-23 06:44 | Day surgery (SDC) | payer MEDICAID, SELFPAY ==
[2024-08-23 07:01] VITALS: BP 162/110; PULSE 78; RESP 18; TEMP 36.7; O2SAT 98; BMI 20.6
[2024-08-23] MEDS: sodium chloride 0.9% 1,000 ML 30 ML IV (07:07)
--- NOTE | 2024-08-23 07:43 | ANES.PREANE2 ---
Pre-Anesthetic Assessment Height/Weight: Height 1.78 m Weight 65.317 kg Temp Pulse Resp BP Pulse Ox O2 Del Method 98.1 F 78 18 162/110 98 Room Air 08/23/24 07:01 08/23/24 07:01 08/23/24 07:01 08/23/24 07:01 08/23/24 07:01 08/23/24 07:01 Preop Diagnosis: GI bleed Operation Date: 08/23/24 07:45 Proposed Procedures p EGD - 89491, 90655, G0105, K52.9,K92.2(Not Applicable) - Thierry Vu DO s Colonoscopy(Not Applicable) - Thierry Vu DO Was Beta Jean taken within 24 hours: N/A Was Clonidine taken within 24 hours: N/A Last intake: Intake Last Liquid Date 08/22/24 Last Liquid Time 20:00 Last Solid Date 08/21/24 Last Solid Time 18:30 Social Alcohol and Tobacco Daily marijuana smoking Exam alert, oriented x 3, clear to auscultation bilaterally and regular rate & rhythm Airway Submandibular: within normal limits Cervical ROM: within normal limits Mallampati: Class II Dentition: false History/ROS No significant history except as noted and No significant complaints Pulmonary Chronic Obstructive Pulmonary Disease, Exertional Dyspnea and Shortness of Breath CV/HEM Coronary Artery Disease, Hypertension and Myocardial Infarction None reported Hepatic None reported GI Gastroesophageal Reflux Disease Metabolic None reported Musc/skel Lower Back Pain and Weakness Left leg swelling Neuropsych Syncope Anesthetic Plan ASA status: 4 Anesthesia: Anesthesia Evaluation and MAC Risk of > 500 ml blood loss (7ml/kg in children): No Medications/Allergies Home Medications Medication Instructions Recorded Confirmed Last Taken Type potassium chloride 20 mEq 20 meq PO BID 08/20/24 08/20/24 08/19/24 History tablet,extended release(part/cryst) Allergies Allergy/AdvReac Type Severity Reaction Status Date / Time Penicillins Allergy Unknown Verified 08/20/24 08:14 Current Medications Generic Name Dose Route Start Last Admin Trade Name Freq PRN Reason Stop Dose Admin Sodium Chloride 1,000 mls @ 30 mls/hr 08/23/24 06:45 08/23/24 07:07 Sodium Chloride 0.9% IV 08/24/24 06:44 30 mls/hr .Q24H PHILLIP Administration PFSH Anesthesia Medical History Hyperlipidemia Smoker Coronary artery disease Hypertension Left inguinal hernia COPD (chronic obstructive pulmonary disease) Right hydrocele Surgically repaired June 2020. No complications. Did well no further work-up indicated Surgical History History of hydrocelectomy H/O left knee surgery H/O circumcision H/O heart artery stent Hx of tonsillectomy Family History Father Cancer LUNG Hypertension Denies family history of Anesthesia complication Bleeding disorder Social History Smoking and tobacco/nicotine status: never used tobacco/nicotine Alcohol intake: former Substance/Drug Use: current Substance/Drug use frequency: daily Lives independently: Yes Marital status: Current occupational status: disabled Data Anesthesia 08/23/24 07:12 Cardiac Studies: Sestamibi Stress Test (Cardiology) 11/29/20
--- NOTE | 2024-08-23 07:47 | W.PM.OPSUD ---
Surgery/Procedure H&P Update DATE OF PROCEDURE: August 23, 2024 DATE H&P PERFORMED: 08/06/24 H&P UPDATE INFORMATION: I have reviewed H&P completed within last 30 days, I have examined patient prior to procedure and No changes to prior documentation PREOP DIAGNOSIS: GI bleed PLANNED PROCEDURE: Operation Date: 08/23/24 07:45 Proposed Procedures p EGD - 87043, 26656, G0105, K52.9,K92.2(Not Applicable) - DO martin Fry Colonoscopy(Not Applicable) - Thierry Vu DO
[2024-08-23 07:48] LABS: Anion Gap 12.6 (5-19); Blood Urea Nitrogen 6 mg/dL (8-23); Calcium 8.1 mg/dL (8.5-10.5); Carbon Dioxide 26 mmol/L (22-29); Chloride 104 mmol/L (98-107); Creatinine Clr Calc Pharmacy 123.0194; Glomerular Filtration Rate 135.6 mL/min (90-130); Glucose 94 mg/dL (65-115); Osmolality Calculated 285 mOsm/kg (285-295); Potassium 3.6 mmol/L (3.5-5.1); Sodium 139 mmol/L (136-145)
[2024-08-23 08:34] VITALS: BP 83/60; PULSE 77; RESP 20; TEMP 36.1; O2SAT 96
[2024-08-23 08:41] VITALS: BP 128/91; PULSE 72; RESP 20; O2SAT 98
--- NOTE | 2024-08-23 09:10 | ANE.PACU2 ---
Inpatient post-anesthesia follow up: Airway intact: Yes Vital signs: Temperature 97.0 F Pulse Rate 72 Respiratory Rate 20 Blood Pressure 128/91 Pulse Oximetry 98 Oxygen Delivery Me thod Room Air Oxygen Flow Rate Fraction of Inspir ed Oxygen Hydration adequate: Yes Nausea and vomiting: No Pain level: 1 Mental status: Baseline
[2024-08-23 09:30] LABS: C.Diff PCR (Lab) NEGATIVE (Negative)
== END 2024-08-23 09:10 | disposition home or self-care (01) ==
PROVIDERS: Student in an Organized Health Care Education/Training Program; PCP Nurse Practitioner Family; Visit Provider Surgery
PROC: 0DJ08ZZ Inspection of Upper Intestinal Tract, Via Natural or Artificial Opening Endoscopic (ICD-10-PCS; CPT 43235; principal; 2024-08-23 07:45)
PROC: 0DJD8ZZ Inspection of Lower Intestinal Tract, Via Natural or Artificial Opening Endoscopic (ICD-10-PCS; CPT 45378; 2024-08-23 07:45)
DX: K92.2 Gastrointestinal hemorrhage, unspecified (principal); K52.9 Noninfective gastroenteritis and colitis, unspecified; K21.00 Gastro-esophageal reflux disease with esophagitis, without bleeding; D12.5 Benign neoplasm of sigmoid colon; D12.3 Benign neoplasm of transverse colon; J44.9 Chronic obstructive pulmonary disease, unspecified; I25.10 Atherosclerotic heart disease of native coronary artery without angina pectoris; I10 Essential (primary) hypertension; I25.2 Old myocardial infarction; E78.5 Hyperlipidemia, unspecified; Z95.5 Presence of coronary angioplasty implant and graft; K22.2 Esophageal obstruction; K44.9 Diaphragmatic hernia without obstruction or gangrene
CPT/HCPCS: 43239; 45380; 45385; 80048; 82274; 83630; 87045; 87177; 87209; 87427; 87449; 87493; 88305; J2704; J7030

== ENCOUNTER 2024-09-06 13:30 | Outpatient (CLI) | payer MEDICAID, SELFPAY ==
--- NOTE | 2024-09-06 13:33 | XRR_ITS ---
PROCEDURE INFORMATION: Exam: XR Lumbosacral Spine Exam date and time: 09/06/2024 2:59 PM Age: 64 years old Clinical indication: Low back pain; Additional info: Low back pain/anesthesia of skin TECHNIQUE: Imaging protocol: Radiologic exam of the lumbosacral spine. Views: 4 or 5 views. COMPARISON: CT abdomen pelvis w con* [id number] 04/15/2020 10:30 AM FINDINGS: Bones/joints: No acute fracture or listhesis. No pars defect. Multilevel degenerative disc disease and facet arthrosis. Soft tissues: Unremarkable. Vasculature: Abdominal aortic calcification. XR/XR lumbar spine min 4V [id number] IMPRESSION: Multilevel degenerative changes with no acute bony findings.
== END 2024-09-06 13:31 | disposition home or self-care (01) ==
LOC: RAD 13:31
PROVIDERS: PCP Nurse Practitioner Family; Visit Provider Nurse Practitioner Family
DX: M51.360 Other intervertebral disc degeneration, lumbar region with discogenic back pain only (principal); R20.0 Anesthesia of skin; I70.0 Atherosclerosis of aorta
CPT/HCPCS: 72110

== ENCOUNTER 2024-09-29 08:08 | Outpatient (CLI) | payer MEDICAID, SELFPAY ==
--- NOTE | 2024-09-29 08:15 | MR_ITS ---
WS: [id number] MRI LUMBAR SPINE NONCONTRAST HISTORY: LBP COMPARISON: None available. TECHNIQUE: Sagittal and axial multisequence imaging is submitted. Advanced degenerative changes in the cervical spine. Cervical stenosis at C3-4, C5-6. Very slight straightening and curvature of the lumbar spine. Disc spaces are mildly narrowed and desiccated. There is marrow edema within a large portion of the L 2 and L3 vertebral bodies and a small portion of the LEFT L4 vertebral body. Conus terminates normally at L1-2 disc level. L1-L2: Normal. L2-L3: Moderate annular disc bulging with ligamentum flavum and facet arthritis. Annular disc bulging is more prominent to the RIGHT with a RIGHT foraminal shallow disc protrusion. Mild central, subarti cular recess and RIGHT foraminal stenosis. L3-L4: Moderate diffuse annular disc bulging with a central disc protrusion. Marked ligamentum flavum and facet arthritis. Moderate RIGHT foraminal disc protrusion. Moderate central with bilateral subar ticular recess encroaching upon the traversing L4 nerve roots. Disc protrusion in the RIGHT foramen i s also contacting the RIGHT exiting L3 nerve root with moderate stenosis. L4-L5: Mild annular disc bulging with ligamentum flavum and facet arthritis. Mild central, bilateral subarticular recess and RIGHT foraminal stenosis. Moderate LEFT foraminal stenosis due to a shallow L EFT foraminal disc protrusion and facet arthritis. There is contact on the LEFT exiting L4 nerve root . L5-S1: Diffuse annular disc bulging with facet and ligamentum flavum hypertrophy. Mild disc encroachm ent upon the subarticular recesses. RIGHT foraminal disc protrusion effacing fat in the foramen and c ontacting the exiting RIGHT L5 nerve root. Mild narrowing the LEFT foramen. Paravertebral soft tissues are normal. MR/MR lumbar spine wo con* [id number] IMPRESSION: 1. Multiple levels of stenosis and disc protrusions. 2. L5-S1: Moderate to severe RIGHT foraminal stenosis due to a disc protrusion and effacement of fat. There is contact on the exiting RIGHT L5 nerve root. Mi ld disc encroachment upon the subarticular recesses and S1 nerve roots. 3. L3-4: Moderate central with bilateral subarticular recess stenosis encroach ing upon the traversing L4 nerve roots. Moderate RIGHT foraminal stenosis due t o disc protrusion contacting the exiting L3 nerve root. 4. L4-5: Moderate LEFT foraminal stenosis due to LEFT foraminal disc protrusio n and facet arthropathy. There is disc contacting the exiting LEFT L4 nerve nuvia t. Additional mild central and bilateral subarticular recess and RIGHT foramina l stenosis. 5. L2-3: Mild central, subarticular recess and RIGHT foraminal stenosis. RIGHT foraminal disc protrusion contributing to the stenosis. 6. Reactive marrow edema in the L2, L3 and L4 vertebral bodies. 7. Component of cervical stenosis with contact on the cervical cord at C3-4 an d C5-6. Myelomalacia cannot be excluded. Consider additional evaluation of the cervical spine by MRI.
--- NOTE | 2024-09-29 08:27 | CT_ITS ---
WS: [id number] LDCT LUNG CANCER SCREENING TECHNIQUE: Noncontrast CT of the chest with coronal and sagittal reformatted images. CLINICAL INFORMATION: HX OF TOBACCO USE/NICOTINE DEPENDENCE,CIGARETTES COMPARISON: None. DLP: 57 mgy/cm DIvol: 1.[address] scans [address] [facility] use at least one of these dose optimization techniques: automat ed exposure control; mA and/or kV adjustment per patient size (includes targeted exams where dose is matched to clinical indication); or iterative reconstruction. FINDINGS: Normal caliber thoracic aorta. No mediastinal or hilar lymphadenopathy. Aortic calcification. Coronar y calcification. No axillary lymphadenopathy. Slight bibasilar atelectasis. Irregular opacity RIGHT lower lobe measuring 9 mm is indeterminate. Thi s may be inflammatory but neoplasm not excluded. Recommend 3-month follow-up. Patchy groundglass and hazy opacities in the lung bases may likely inflammatory. Subsegmental ectasis in the RIGHT middle lobe. Moderate chronic emphysematous changes. Mild thoracic kyphosis. CT/CT lung screening [id number] IMPRESSION: LUNG-RADS: 4A-Probably Suspicious FOLLOW UP: 3 Month LDCT
== END 2024-09-29 08:09 | disposition home or self-care (01) ==
LOC: RAD 08:08
PROVIDERS: PCP Nurse Practitioner Family; Visit Provider Nurse Practitioner Family
DX: Z12.2 Encounter for screening for malignant neoplasm of respiratory organs (principal); R91.1 Solitary pulmonary nodule; J43.9 Emphysema, unspecified; M48.02 Spinal stenosis, cervical region; M51.360 Other intervertebral disc degeneration, lumbar region with discogenic back pain only; M51.26 Other intervertebral disc displacement, lumbar region; M99.64 Osseous and subluxation stenosis of intervertebral foramina of sacral region; R20.0 Anesthesia of skin
CPT/HCPCS: 71271; 72148

== ENCOUNTER → 2024-10-21 07:56 | Outpatient (BNVA) | payer MEDICAID, SELFPAY | PROVIDERS: PCP Nurse Practitioner Family; Referring Provider Nurse Practitioner Family; Visit Provider Orthopaedic Surgery | DX: M54.9 Dorsalgia, unspecified (principal); M54.41 Lumbago with sciatica, right side; M54.42 Lumbago with sciatica, left side; G89.29 Other chronic pain | CPT/HCPCS: 72110; 99203 ==

== ENCOUNTER 2025-06-01 16:17 | Inpatient (IN) | payer MEDICARE, MEDICAID, SELFPAY ==
[2025-06-01] VITALS (11 sets, daily range): BP systolic 108–173; BP diastolic 62–110; PULSE 74–85; RESP 17–19; TEMP 37.1; O2SAT 92–99; BMI 19.9
--- OUTSIDE RECORDS SUMMARY | 2025-06-01 16:29 | XMS_ITS | Clinical Summary ---
Author Organization [employer] [facility] Address [address] Shin: Epic Prelude ADT GELY GARCIA [address] Care Team Providers Care Mortgage Processing Clerk Name Role Phone Unavailable Primary Care Provider Unavailabl e Allergies Active Allergy Reactions Criticality Noted Date Comments Aspirin Unknown 01/06/2017 Penicillins Unknown 01/06/2017 Medications nitroglycerin (NITROSTAT) 0.4 mg Tablet, Sublingual Place 1 Tablet (0.4 mg) under tongue every 5 minutes as needed for Chest Pain. 25 Tablet 2 01/08/2017 Active isosorbide mononitrate (IMDUR) 30 mg Extended Release 24 hour tablet Take 1 Tablet (30 mg) by mouth daily. 30 Tablet 11 01/08/2017 Active prasugreL (EFFIENT) 10 mg Tablet Take 1 Tablet (10 mg) by mouth daily. 30 Tablet 6 01/08/2017 Active atorvastatin (LIPITOR) 80 mg tablet Take 1 Tablet (80 mg) by mouth daily. 30 Tablet 11 01/08/2017 Active lisinopriL (PRINIVIL) 2.5 mg tablet Take 1 Tablet (2.5 mg) by mouth daily. 30 Tablet 0 01/08/2017 Active metoprolol tartrate (LOPRESSOR) 25 mg tablet Take 1 Tablet (25 mg) by mouth 2 times daily. 30 Tablet 11 01/08/2017 Active aspirin (ECOTRIN EC) 81 mg Tablet, Delayed Release (E.C.) Take 1 Tablet (81 mg) by mouth daily. 30 Tablet 11 01/08/2017 Active Active Problems Problem Noted Date Diagnosed Date Atherosclerosis of [place] co ronary artery of [place] heart with unstable angina pectoris 01/08/2017 Chewing tobacco dependence 01/07/2017 tobacco smoke expo sure (20wks gestation-4wks post ) 01/07/2017 Cigarette dependence 01/07/2017 Occupational tobacco smoke exposure 01/07/2017 Tobacco use 01/07/2017 Second hand tobacco smoke exposure 01/07/2017 Non-ST elevation myocardial infarction (NSTEMI), type 2 Social History Tobacco Use Types Packs/Day Years Used Date Smoking Tobacco: Every Day Cigarettes Sex and Gender Information Value Date Recorded Sex Assigned at Not on file Legal Sex Male 3:19 AM 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 Gender Identity Not on file Sexual Orientation Not on file Last Filed Vital Signs Vital Sign Reading Time Taken Comments Blood Pressure 124/74 01/08/2017 8:25 AM 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 ASSISTANT Pulse - - Temperature 36.7 C (98.1 F) 01/08/2017 5:43 AM 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 ASSISTANT Respiratory Rate 18 01/08/2017 5:43 AM 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 ASSISTANT Oxygen Saturation - - Inhaled Oxygen Concentration - - Weight 73.5 kg (162 lb) 01/07/2017 8:41 AM 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 ASSISTANT Height 177.8 cm (5' 10 ) 01/07/2017 8:41 AM 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 ASSISTANT Body Mass Index 23.24 01/07/2017 8:41 AM 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 ASSISTANT Plan of Treatment Health Maintenance Due Date Last Done Comments DTAP/TDAP/TD VACCINES (1 - Tdap) 1979 COLORECTAL SCREENING 2005 Colorectal Cancer Screening 2005 FIT-DNA Q 3 years 2005 FIT/FOBT Q 1 year 2005 Flex Sig/CT Colonography Q 5 years 2005 PNEUMOCOCCAL VACCINE 50+ YEARS (1 of 1 - PCV) 04/26/20 10 ZOSTER VACCINE (1 of 2) 2010 INFLUENZA VACCINE (#1) 2025 RSV VACCINE (60+ or ) (1 - 1-dose 75+ series) 2035 Medical Devices Implanted Type Area Rivet Flunky Device Identifier Shelf Expiration Date Model / Serial / Lot [id number]/07/2017 Implanted:2016 (Quantity not on file) Stent
--- OUTSIDE RECORDS SUMMARY | 2025-06-01 16:29 | XMS_ITS | Patient Health Record ---
Author Organization [facility] Address [address] [place] [id number] Support Name Relationship Address Phone Arin Demetrius Guarantor Unknown [phone] Allergies Allergen (clinical drug ingredient) Drug/Non Drug Allergy documented on EMR Reaction Allergy Type Onset Date Status Penicillin Unknown Drug Allergy Active Reason For Referral No Information Medications Medication SIG (Take, Route, Frequency, Duration) Notes Start Date End Date Status Lisinopril 2.5 MG 1 tablet Orally Once a day for 30 day(s) Active Metoprolol Succinate 25 MG 1 capsule Ora lly Once a day for 30 day(s) Active Isosorbide Mononitrate 30 MG 1 tablet in the morning Orally Once a day for 30 day(s) Active Atorvastatin Calcium 40 MG 1 tablet Oral ly Once a day for 30 day(s) Active Social History Tobacco Use: Social History Observation Description Date Details (start date - stop date) Current Smoker NA - NA Smoking Question Answer Notes Smoking Status: current smoker Problems Problem Type SNOMED Code ICD Code Onset Dates Problem Status W/U Status Risk Notes Problem 426862488 H/O heart artery stent (Z95.5) Active confirmed Problem 72302272 Hypertension, unspecified type (I10) Active confirmed Plan Of Treatment Pending Test Test Name Order Date Urinalysis, Routine 09/24/2021 Vision Screening 09/24/2021 Hearing Screening 09/24/2021 Insurance Providers Payer Name Payer Address Payer Phone Subscriber Number Group Number Insured Name Patient Relationship to Insured Coverage Start Date Coverage End Date Meka WOLFE Physical Recerts/Ra ndtracy/Oliver [email or web address] [phone] Demetrius Hinkle Self - patient is the insured Medical (General) History Medical History History ICD Code 2015 Heart Attack 2015 Heart Stints 2019 Hernia 2019 Testicle growths removed Surgical History Surgery Date(Month/Year) Hernia 2019 Testicle Growth removed 2019 Heart attack with stinits 2014
--- OUTSIDE RECORDS SUMMARY | 2025-06-01 16:29 | XMS_ITS | Clinical Summary ---
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 30 Tablet 11 01/08/2017 Active atorvastatin (LIPITOR) 80 mg tablet Take 1 Tablet (80 mg) by mouth daily. 30 Tablet 11 01/08/2017 Active metoprolol tartrate (LOPRESSOR) 25 mg tablet Take 1 Tablet (25 mg) by mouth 2 times daily. 30 Tablet 11 01/08/2017 Active prasugrel (EFFIENT) 10 mg Tablet Take 1 Tablet (10 mg) by mouth daily. 30 Tablet 6 01/08/2017 Active isosorbide mononitrate (IMDUR) 30 mg Extended Release 24 hour tablet Take 1 Tablet (30 mg) by mouth daily. 30 Tablet 11 01/08/2017 Active nitroglycerin (NITROSTAT) 0.4 mg Tablet, Sublingual Place 1 Tablet (0.4 mg) under tongue every 5 minutes as needed for Chest Pain. 25 Tablet 2 01/08/2017 Active lisinopril (PRINIVIL) 2.5 mg tablet Take 1 Tablet (2.5 mg) by mouth daily. 30 Tablet 01/08/2017 Active Active Problems Problem Noted Date Diagnosed Date Atherosclerosis of [place] co ronary artery of [place] heart with unstable angina pectoris 01/08/2017 Tobacco use 01/07/2017 Cigarette dependence 01/07/2017 Chewing tobacco dependence 01/07/2017 Second hand tobacco smoke exposure 01/07/2017 Occupational tobacco smoke exposure 01/07/2017 tobacco smoke expo sure (20wks gestation-4wks post ) 01/07/2017 Non-ST elevation myocardial infarction (NSTEMI), type 2 Social History Tobacco Use Types Packs/Day Years Used Date Smoking Tobacco: Every Day Cigarettes Sex and Gender Information Value Date Recorded Sex Assigned at Not on file Legal Sex Male 10:47 PM [employer] Gender Identity Not on file Sexual Orientation Not on file Last Filed Vital Signs Vital Sign Reading Time Taken Comments Blood Pressure 124/74 01/08/2017 8:25 AM [employer] Pulse - - Temperature 36.7 C (98.1 F) 01/08/2017 5:43 AM [employer] Respiratory Rate 18 01/08/2017 5:43 AM [employer] Oxygen Saturation 93% 01/08/2017 5:43 AM [employer] Inhaled Oxygen Concentration - - Weight 73.5 kg (162 lb) 01/07/2017 8:41 AM [employer] Height 177.8 cm (5' 10 ) 01/07/2017 8:41 AM [employer] Body Mass Index 23.24 01/07/2017 8:41 AM [employer] Plan of Treatment Health Maintenance Due Date [...] series) 2035 Medical Devices Implanted Type Area Cable Machine Operator Device Identifier Shelf Expiration Date Model / Serial / Lot Tk [id number]/07/2017 Implanted:2016 (Quantity not on file) Stent Advance Directives For more information, please contact: [phone] * Full Code (Latest Code Status on File) Date Activated Date Inactivated Comments 01/07/2017 8:32 AM 01/08/2017 6:03 PM
--- NOTE | 2025-06-01 17:00 | XRR_ITS ---
PROCEDURE INFORMATION: Exam: XR Chest Exam date and time: 06/01/2025 5:16 PM Age: 65 years old Clinical indication: Other: Left sided numbness; Prior surgery; Surgery date: 6+ months; Surgery type: Heart stent; Additional info: Weakness TECHNIQUE: Imaging protocol: Radiologic exam of the chest. Views: 1 view. COMPARISON: CT lung screening [id number] 09/29/2024 8:51 AM FINDINGS: Lungs: Pulmonary hyperexpansion. Mild bibasilar atelectasis/scarring. No focal consolidation. Pleural spaces: Unremarkable. No pleural effusion. No pneumothorax. Heart/Mediastinum: Unremarkable. No cardiomegaly. Bones/joints: Unremarkable. XR/XR chest 1V portable [id number] IMPRESSION: No acute findings.
--- NOTE | 2025-06-01 17:00 | CTR_ITS ---
PROCEDURE INFORMATION: Exam: CT Head Without Contrast Exam date and time: 06/01/2025 5:09 PM Age: 65 years old Clinical indication: Numbness / parasthesia; Left; Additional info: Left numbness for one year TECHNIQUE: Imaging protocol: Computed tomography of the head without contrast. Radiation optimization: All CT scans at this facility use at least one of these dose optimization techniques: automated exposure control; mA and/or kV adjustment per patient size (includes targeted exams where dose is matched to clinical indication); or iterative reconstruction. COMPARISON: CT head wo con* [id number] 05/16/2023 7:20 AM RADIATION DOSE METRICS: Total DLP (mGy-cm): 1086.5 FINDINGS: Brain: Regional hypodensity in loss of soni-white matter differentiation is observed in the right occipital lobe. This was not present on the previous exam. Moderate patchy hypodensity in hemispheric white matter bilaterally most likely due to chronic microangiopathy. No acute intra-axial hemorrhage. No masses. Cerebral ventricles: No ventriculomegaly. Paranasal sinuses: Visualized sinuses are unremarkable. No fluid levels. Mastoid air cells: Visualized mastoid air cells are well aerated. Bones: Unremarkable. No acute fracture. Soft tissues: Unremarkable. CT/CT head wo con* [id number] IMPRESSION: 1. Evolving subacute versus chronic right occipital lobe infarct. Please correlate for possible visual field deficits. 2. Recommend MRI brain for further evaluation.
--- NOTE | 2025-06-01 17:01 | CTR_ITS ---
PROCEDURE INFORMATION: Exam: CT Cervical Spine Without Contrast Exam date and time: 06/01/2025 5:09 PM Age: 65 years old Clinical indication: Numbness; Additional info: Left sided numbness TECHNIQUE: Imaging protocol: Computed tomography of the cervical spine without contrast. Radiation optimization: All CT scans at this facility use at least one of these dose optimization techniques: automated exposure control; mA and/or kV adjustment per patient size (includes targeted exams where dose is matched to clinical indication); or iterative reconstruction. COMPARISON: CT lung screening [id number] 09/29/2024 8:51 AM RADIATION DOSE METRICS: Total DLP (mGy-cm): 166.3 FINDINGS: Bones: Multilevel grade 1 degenerative spondylolisthesis or retrolisthesis at C2-C3, C4-C5, C5-C6. No fractures. No large disc protrusions. No severe spinal stenosis. Moderate central spinal stenosis at C5-C6 due to 4 mm disc osteophyte complex. Tmos-pt-jtisoglk bilateral foramina stenosis C5-C6 and C6-C7. Lungs: Lung apices are normal. Soft tissues: Unremarkable. CT/CT cervical spin wo con* [id number] IMPRESSION: Multilevel cervical spondylosis featuring moderate central stenosis at C5-C6.
--- NOTE | 2025-06-01 17:09 | ED_ITS ---
HPI - Neuro Symptoms/Deficit 2 General: Chief Complaint: Neuro Symptoms/Deficit Stated Complaint: left arm/leg numbness Time Seen by Provider: 06/01/25 16:57 History of Present Illness: 65-year-old man who presents emergency r oom with neurologic complaints. He says for the past almost 1 year he has had numbness in his left leg and then over the last week or 2 he feels like it has been more numb in his left arm. He says that sometimes he has vision changes in his right eye. He has no motor deficits. He says he called his doctor today and could not get through so he had a friend bring him to the emergency room. He is also complaining that is very hot and he does not have air conditioning. Related Data Home Medications ?Medication ?Instructions ?Recorded ?Confirmed potassium chloride 20 mEq 20 meq PO BID 08/20/2410/21 tablet,extended release(part/cryst) Previous Rx's ?Medication ?Instructions ?Recorded pantoprazole 40 mg tablet,delayed 40 mg PO BID 6 weeks #84 tabs 08/23/24 release prednisone 20 mg tablet 20 mg PO DAILY #15 tabs 10/10 01/03 Allergies Allergy/AdvReac Type Severity Reaction Status Date / Time Penicillins Allergy Unknown Verified 06/01/25 16:52 Review of Systems 2 Narrative: Constitutional symptoms: Negative except as documented in HPI. Skin symptoms: Negative except as documented in HPI. Eye symptoms: Negative except as documented in HPI. ENMT symptoms: Negative except as documented in HPI. Respiratory symptoms: Negative except as documented in HPI. Cardiovascular symptoms: Negative except as documented in HPI. Gastrointestinal symptoms: Negative except as documented in HPI. Genitourinary symptoms: Negative except as documented in HPI. Musculoskeletal symptoms: Negative except as documented in HPI. Neurologic symptoms: Negative except as documented in HPI. Psychiatric symptoms: Negative except as documented in HPI. Endocrine symptoms: Negative except as documented in HPI. PFSH ED 2 PFSH: Medical History (Updated 06/01/25 @ 19:13 by Amy Salomon MD) Hyperlipidemia Smoker Coronary artery disease Hypertension Left inguinal hernia COPD (chronic obstructive pulmonary disease) Right hydrocele Surgically repaired June 2020. No complications. Did well no further work-up indicated Surgical History History of hydrocelectomy H/O left knee surgery H/O circumcision H/O heart artery stent Hx of tonsillectomy Family History Father Cancer LUNG Hypertension Denies family history of Anesthesia complication Bleeding disorder Social History Smoking and tobacco/nicotine status: current every day tobacco/nicotine user cigarettes Alcohol intake: former Substance/Drug Use: current Substance/Drug use frequency: daily Lives independently: Yes Marital status: Current occupational status: disabled Physical Exam 2 Narrative: EXAM NARRATIVE: General: Alert, no acute distress. Skin: Warm, dry. Head: Normocephalic, atraumatic. Neck: Supple, trachea midline. Eye: Extraocular movements are intact. Ears, nose, mouth and throat: mucosa moist. Cardiovascular: Regular, Normal peripheral perfusion. Respiratory: Lungs are clear to auscultation, respirations are non-labored, breath sounds are equal, Symmetrical chest wall expansion. Gastrointestinal: Soft, Nontender, Non distended Musculoskeletal: Normal ROM, no deformity. Neurological: Alert and oriented, No focal neurological deficit observed. Psychiatric: Cooperative, appropriate mood & affect. Course 2 Vital Signs: Vital signs: Vital Signs Temperature 98.7 F 06/01/25 16:47 Pulse Rate 74 06/01/25 17:53 Blood Pressure 163/88 06/01/25 18:32 Pulse Oximetry 99 06/01/25 18:32 Oxygen Delivery Me thod Room Air 06/01/25 18:32 MDM - Neuro Symptoms/Deficit Medical Decision Making Medical decision making: Differential diagnosis for patient with focal neurologic deficit(s) includes but not limited to and based on the above HPI, review of systems and physical exam: ischemic stroke, hemorrhagic stroke and embolic stroke secondary to atrial fibrillation), TIA, Santana's palsey, metabolic encephalopathy with previous stroke. Orders placed to evaluate differential diagnosis based on the above differential, HPI and physical exam NIH Stroke Scale/Score (NIHSS) from [email or web address] on 06/01/2025 All calculations should be rechecked by clinician prior to use RESULT SUMMARY: 1 points NIH Stroke Scale INPUTS: 1A: Level of consciousness ?> 0 = Alert; keenly responsive 1B: Ask month and age ?> 0 = Both questions right 1C: 'Blink eyes' & 'squeeze hands' ?> 0 = Performs both tasks 2: Horizontal extraocular movements ?> 0 = Normal 3: Visual munson ?> 1 = Partial hemianopia 4: Facial palsy ?> 0 = Normal symmetry 5A: Left arm motor drift ?> 0 = No drift for 10 seconds 5B: Right arm motor drift ?> 0 = No drift for 10 seconds 6A: Left leg motor drift ?> 0 = No drift for 5 seconds 6B: Right leg motor drift ?> 0 = No drift for 5 seconds 7: Limb Ataxia ?> 0 = No ataxia 8: Sensation ?> 0 = Normal; no sensory loss 9: Language/aphasia ?> 0 = Normal; no aphasia 10: Dysarthria ?> 0 = Normal 11: Extinction/inattention ?> 0 = No abnormality Lab Review: Laboratory results were reviewed and interpreted by myself the emergency room physician. No leukocytosis. No anemia. No renal failure. Consultation: I spoke with Dr. Florse who is on-call for neurology. She recommends CTA and echocardiogram and admission CTA head and neck: Occlusion of the right internal carotid artery and of the right vertebral artery both which appear to have some reconstitution and appear old. This was reviewed and interpreted by myself the emergency room physician. I also reviewed the radiology report. I reviewed the patient's medical record. Reexamination: Patient remained stable. No increased work of breathing. No altered mental status. No focal motor deficits. Consultation: I spoke with Dr. Nino who is on-call for the hospitalist service who agrees to admission Assessment and plan: Cerebrovascular accident Carotid artery disease Hypertension -I discussed the patient with the hospitalist on-call who is admitting the patient. - Discussed findings and plan with patient. Answered any questions. - All laboratory values were reviewed and interpreted personally by myself, the ER physician - All imaging was reviewed and interpreted personally by myself, the ER physician. - Evaluation and treatment of this problem were appropriate in the emergency setting Lab Data 06/01/25 17:22 06/01/25 17:22 Radiology Impressions Chest X-Ray 06/01/25 17:00 IMPRESSION: No acute findings. Head CT 06/01/25 17:00 IMPRESSION: 1. Evolving subacute versus chronic right occipital lobe infarct. Please correlate for possible visual field deficits. 2. Recommend MRI brain for further evaluation. ADDENDUM: 06/01/25 1746 THIS REPORT CONTAINS FINDINGS THAT MAY BE CRITICAL TO PATIENT CARE. The findings were verbally communicated via telephone conference with AMY SALOMON at 5:43 PM CDT on 06/01/2025. The findings were acknowledged and understood. Cervical Spine CT 06/01/25 17:01 IMPRESSION: Multilevel cervical spondylosis featuring moderate central stenosis at C5-C6. Head/Neck CTA 06/01/25 18:16 IMPRESSION: 1. No large vessel stenosis or occlusion. 2. Ill-defined hypoattenuation within the right occipital lobe remains concerning for acute to subacute ischemia. This could be further assessed with MRI. IMPRESSION: 1. Occlusion of the right internal carotid artery at the level of the carotid bifurcation with distal reconstitution along the carotid siphon. This may be a chronic finding as acute occlusion could result in a large area of acute brain ischemia. Correlate with clinical findings and course of symptoms. 2. Occlusion of the right vertebral artery along the V1 segment and majority of the V2 segment with reconstitution at the C3 level. Short-segment occlusion also seen along the horizontal portion of the V3 segment. Distal reconstitution. The left vertebral artery appears patent throughout. 3. 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 REFERENCES: NASCET CRITERIA. The degree of stenosis in the cervical segment of the internal carotid artery is based on NASCET criteria. Normal is no stenosis. Mild is less than 50% stenosis. Moderate is 50-69% stenosis. Severe is 70% to 99% stenosis. Total occlusion is no detectable patent lumen. THIS REPORT CONTAINS FINDINGS THAT MAY BE CRITICAL TO PATIENT CARE. The findings were verbally communicated via telephone conference with AMY SALOMON at 6:54 PM CDT on 06/01/2025. The findings were acknowledged and understood. Laboratory Results WBC 8.12 10^3/uL (3.29-11.43) 06/01/25 17:22 RBC 4.79 10^6/uL (3.85-5.65) 06/01/25 17:22 Hgb 16.20 g/dL (11.27-16.99) 06/01/25 17:22 Hct 47.4 % (37-53) 06/01/25 17:22 MCV 99.0 fl (82-101) 06/01/25 17:22 MCH 33.8 pg (27-33) H 06/01/25 17:22 MCHC 34.2 g/dL (30-55) 06/01/25 17:22 RDW 14.1 % (12.1-15.1) 06/01/25 17:22 Plt Count 159 10^3/cmm (157-399) 06/01/25 17:22 MPV 10.7 fL (7.4-10.4) H 06/01/25 17:22 Neut % (Auto) 62.0 % 06/01/25 17:22 Lymph % (Auto) 27.3 % 06/01/25 17:22 [place] % (Auto) 8.6 % 06/01/25 17:22 Eos % (Auto) 0.7 % 06/01/25 17:22 Baso % (Auto) 0.9 % 06/01/25 17:22 Neut # (Auto) 5.03 10^3/uL (1.8-7.7) 06/01/25 17:22 Lymph # (Auto) 2.2 10^3/uL (0.8-4.8) 06/01/25 17:22 [place] # (Auto) 0.7 10^3/uL (0.2-0.9) 06/01/25 17:22 Eos # (Auto) 0.1 10^3/uL (0.0-0.8) 06/01/25 17:22 Baso # (Auto) 0.1 10^3/uL (0.0-0.1) 06/01/25 17:22 Nucleated RBC % (auto) 0 % 06/01/25 17:22 Nucleated RBCs # 0.0 /100WBC 06/01/25 17:22 PT 12.80 SECONDS (12.1-14.9) 06/01/25 17:22 INR 0.90 (0.8-1.2) 06/01/25 17:22 APTT 29.0 SECONDS (23.9-36.7) 06/01/25 17:22 Sodium 137 mmol/L (136-145) 06/01/25 17:22 Potassium 3.2 mmol/L (3.5-5.1) L 06/01/25 17:22 Chloride 100 mmol/L (98-107) 06/01/25 17:22 Carbon Dioxide 24 mmol/L (22-29) 06/01/25 17:22 Anion Gap 16.2 (5-19) 06/01/25 17:22 BUN 11 mg/dL (8-23) 06/01/25 17:22 Creatinine 0.9 mg/dL (0.7-1.2) 06/01/25 17:22 GFR Calculation 84.7 mL/min (90-130) L 06/01/25 17:22 Glucose 104 mg/dL (65-115) 06/01/25 17:22 Calculated Osmolality 284 mOsm/kg (285-295) L 06/01/25 17:22 Calcium 8.8 mg/dL (8.5-10.5) 06/01/25 17:22 Total Bilirubin 1.3 mg/dL (0.15-1.2) H 06/01/25 17:22 AST 25 U/L (0-40) 06/01/25 17:22 ALT 16 U/L (0-41) 06/01/25 17:22 Alkaline Phosphatase 113 U/L (40-130) 06/01/25 17:22 Total Protein 6.6 g/dL (6.6-8.7) 06/01/25 17:22 Albumin 3.7 g/dL (3.5-5.2) 06/01/25 17:22 Globulin 2.9 g/dL (1.3-4.6) 06/01/25 17:22 All radiology interpretation(s) finalized by discharge Discharge Plan Discharge Patient Disposition: Admitted As Inpatient Clinical Impression: Cerebrovascular accident, Hypertension Condition: Stable Coding Level of Care Code ED Charge Entry Clerk for Elin Larios
[2025-06-01 17:35] LABS: Hematocrit 47.4 % (37-53); Hemoglobin 16.20 g/dL (11.27-16.99); Mean Corpuscular HGB Conc 34.2 g/dL (30-55); Mean Corpuscular Hemoglobin 33.8 pg (27-33); Mean Corpuscular Volume 99.0 fl (82-101); Nucleated Red Blood Cells % 0 %; Platelet Count 159 10^3/cmm (157-399); Red Blood Count 4.79 10^6/uL (3.85-5.65); White Blood Count 8.12 10^3/uL (3.29-11.43)
[2025-06-01 18:06] LABS: INR 0.90 (0.8-1.2); Prothrombin Time 12.80 SECONDS (12.1-14.9)
[2025-06-01 18:07] LABS: Partial Thromboplastin Time 29.0 SECONDS (23.9-36.7)
[2025-06-01 18:14] LABS: Alanine Aminotransferase 16 U/L (0-41); Albumin Level 3.7 g/dL (3.5-5.2); Alkaline Phosphatase 113 U/L (40-130); Blood Urea Nitrogen 11 mg/dL (8-23); Calcium 8.8 mg/dL (8.5-10.5); Carbon Dioxide 24 mmol/L (22-29); Chloride 100 mmol/L (98-107); Creatinine Clr Calc Pharmacy 77.4468; Globulin 2.9 g/dL (1.3-4.6); Glucose 104 mg/dL (65-115); Osmolality Calculated 284 mOsm/kg (285-295); Sodium 137 mmol/L (136-145); Total Protein 6.6 g/dL (6.6-8.7)
--- NOTE | 2025-06-01 18:16 | CTR_ITS ---
PROCEDURE INFORMATION: Exam: CTA Head With Contrast, Arteriography Exam date and time: 06/01/2025 6:22 PM Age: 65 years old Clinical indication: Weakness; Additional info: Possible stroke TECHNIQUE: Imaging protocol: Computed tomographic angiography of the head with contrast. Exam focused on the arteries. 3D rendering (Not supervised by radiologist): MIP and/or 3D reconstructed images were created by the technologist. Radiation optimization: All CT scans at this facility use at least one of these dose optimization techniques: automated exposure control; mA and/or kV adjustment per patient size (includes targeted exams where dose is matched to clinical indication); or iterative reconstruction. Contrast material: OMNI 350; Contrast volume: 100 ml; Contrast route: INTRAVENOUS (IV); COMPARISON: CT head wo con* [id number] 06/01/2025 5:09 PM RADIATION DOSE METRICS: Total DLP (mGy-cm): 386.76 FINDINGS: ANTERIOR CIRCULATION: Right internal carotid artery: Reconstitution of an occluded cervical right internal carotid artery. No aneurysm. Moderate atherosclerotic calcifications. Right middle cerebral artery: No occlusion or significant stenosis. No aneurysm. Right anterior cerebral artery: No occlusion or significant stenosis. No aneurysm. Left internal carotid artery: Intracranial segment is patent with no significant stenosis. No aneurysm. Moderate atherosclerotic calcifications without hemodynamically significant stenosis. Left middle cerebral artery: No occlusion or significant stenosis. No aneurysm. Left anterior cerebral artery: No occlusion or significant stenosis. No aneurysm. POSTERIOR CIRCULATION: Right vertebral artery: No occlusion or significant stenosis. No aneurysm. Left vertebral artery: No occlusion or significant stenosis. No aneurysm. Basilar artery: No occlusion or significant stenosis. No aneurysm. Right posterior cerebral artery: origin of the posterior cerebral artery. No occlusion or significant stenosis. No aneurysm. Left posterior cerebral artery: origin of the posterior cerebral artery. No occlusion or significant stenosis. No aneurysm. Brain: Ill-defined area of hypoattenuation again seen in the right occipital lobe No definite mass, mass effect, or midline shift. Cerebral ventricles: No ventriculomegaly. Bones/joints: Unremarkable. No acute fracture. Soft tissues: Unremarkable. PROCEDURE INFORMATION: Exam: CTA Neck With Contrast Exam date and time: 06/01/2025 6:22 PM Age: 65 years old Clinical indication: Weakness; Additional info: Possible stroke TECHNIQUE: Imaging protocol: Computed tomographic angiography of the neck with contrast. Exam focused on the cervical segments of the vasculature. 3D rendering (Not supervised by radiologist): MIP and/or 3D reconstructed images were created by the technologist. Radiation optimization: All CT scans at this facility use at least one of these dose optimization techniques: automated exposure control; mA and/or kV adjustment per patient size (includes targeted exams where dose is matched to clinical indication); or iterative reconstruction. Contrast material: OMNI 350; Contrast volume: 100 ml; Contrast route: INTRAVENOUS (IV); COMPARISON: CT cervical spin wo con* [id number] 06/01/2025 5:09 PM RADIATION DOSE METRICS: Total DLP (mGy-cm): 386.76 FINDINGS: Right common carotid artery: No stenosis. No dissection or occlusion. Right internal carotid artery: No complete occlusion of the right internal carotid artery at the level of its origin. Distal reconstitution along the carotid siphon. Right external carotid artery: No occlusion or stenosis of the origin. Left common carotid artery: No stenosis. No dissection or occlusion. Left internal carotid artery: Moderate atherosclerotic calcifications at the origin. No stenosis of the extracranial segment. No dissection or occlusion. Left external carotid artery: No occlusion or stenosis of the origin. Right vertebral artery: Occlusion of the right vertebral artery of the C7 level with reconstitution at about the C3 level. There is short-segment occlusion again along the proximal/horizontal V3 segment with distal reconstitution. Left vertebral artery: No stenosis. No dissection or occlusion. Left subclavian artery: Severe stenosis of the origin of the left subclavian artery related to atherosclerotic plaques with the lumen narrowed down to 2 mm. The more distal artery appears patent. Teeth: Patient is edentulous. Soft tissues: Normal. No significant soft tissue swelling. Bones/joints: No acute fracture. Multilevel degenerative changes of the visualized spine. Lungs: Emphysematous changes in the lung apices. CT/CT angio headneck* [id number] IMPRESSION: 1. No large vessel stenosis or occlusion. 2. Ill-defined hypoattenuation within the right occipital lobe remains concerning for acute to subacute ischemia. This could be further assessed with MRI. IMPRESSION: 1. Occlusion of the right internal carotid artery at the level of the carotid bifurcation with distal reconstitution along the carotid siphon. This may be a chronic finding as acute occlusion could result in a large area of acute brain ischemia. Correlate with clinical findings and course of symptoms. 2. Occlusion of the right vertebral artery along the V1 segment and majority of the V2 segment with reconstitution at the C3 level. Short-segment occlusion also seen along the horizontal portion of the V3 segment. Distal reconstitution. The left vertebral artery appears patent throughout. 3. 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 REFERENCES: NASCET CRITERIA. The degree of stenosis in the cervical segment of the internal carotid artery is based on NASCET criteria. Normal is no stenosis. Mild is less than 50% stenosis. Moderate is 50-69% stenosis. Severe is 70% to 99% stenosis. Total occlusion is no detectable patent lumen. THIS REPORT CONTAINS FINDINGS THAT MAY BE CRITICAL TO PATIENT CARE. The findings were verbally communicated via telephone conference with KALIE GERONIMO at 6:54 PM CDT on 06/01/2025. The findings were acknowledged and understood.
[2025-06-01 18:20] LABS: Anion Gap 16.2 (5-19); Aspartate Amino Transferase 25 U/L (0-40); Potassium 3.2 mmol/L (3.5-5.1)
[2025-06-01] MEDS: iohexol 350 mg/mL 500 mL Btl (per mL) IV (18:26)
[2025-06-01 19:50] LABS: Glucose Urine UA Negative (Normal); Nitrate Urine Positive (Negative)
[2025-06-01 20:02] LABS: Specific Gravity, Urine 1.079 (1.005-1.030)
[2025-06-01 20:09] LABS: PCP Screen Urine Negative (Negative)
--- NOTE | 2025-06-01 20:44 | USCV_ITS ---
Demetrius Hinkle Age: 65 Gender: M : 1960 Exam Date: 06/01/2025 23:03 Ordering Phys: Umberto Nino MD Technologist: TRACEY Exam Location: [facility] [place] Indication: stroke, right visual disturbance, left arm numbness, chronic left leg numbness x 1 yr, hx spinal MRIs BP: 114 / 97 HR: 75 Rhythm: Sinus Technical Quality: Adequate MEASUREMENTS (Male / Female) Normal Values 2D ECHO LV Diastolic Diameter PLAX 3.8 cm 4.2 - 5.9 / 3.9 - 5.3 cm IVS Diastolic Thickness 1.6 cm 0.6 - 1.0 / 0.6 - 0.9 cm IVS Systolic Thickness 1.8 cm LVPW Diastolic Thickness 1.1 cm 0.6 - 1.0 / 0.6 - 0.9 cm LVPW Systolic Thickness 1.5 cm LVOT Diameter 2.1 cm LV Ejection Fraction 2D Teich 60.4 % LV Ejection Fraction MOD 4C 58.4 % LV Ejection Fraction MOD 2C 69.9 % LV Ejection Fraction 2C AL 69.7 % LA Diameter 2.4 cm Aorta at Sinotubular Diameter 2.8 cm IVC Diameter 1.4 cm M-MODE LA Ao Ratio MM 1.0 AV Cusp Separation MM 1.8 cm DOPPLER AV Peak Velocity 101.0 cm/s LVOT Peak Velocity 67.0 cm/s AV Area Cont Eq vti 2.4 cm squared AV Area Cont Eq pk 2.3 cm squared MV Peak Velocity 109.0 cm/s MV Area PHT 3.7 cm squared Mitral E to A Ratio 0.9 TV Peak Velocity 272.0 cm/s TR Peak Velocity 280.0 cm/s TR Peak Gradient 31.4 mmHg TV Peak E Velocity 48.0 cm/s PV Peak Velocity 79.0 cm/s FINDINGS Left Ventricle Normal left ventricular size and systolic function, EF 60%. No regional wall motion abnormalities. Moderate hypertrophy of the left ventricular septum with no sign of left ventricular outflow tract obstruction. Mild hypertrophy of the posterior wall. Stage I left ventricular diastolic dysfunction normal for age. Right Ventricle The right ventricle is normal in size and function. Right Atrium The right atrium is normal in size. Left Atrium The left atrium is normal in size. Mitral Valve Mild mitral annular calcification. Mild to moderate mitral valve regurgitation. No mitral valve stenosis Aortic Valve Structurally normal aortic valve without stenosis. There is mild aortic regurgitation. Tricuspid Valve Structurally normal tricuspid valve without significant stenosis or regurgitation. Pulmonary artery systolic pressure is normal. Pulmonic Valve Structurally normal pulmonic valve without significant stenosis. There is no pulmonic regurgitation. Pericardium Normal pericardium without effusion. Aorta Normal ascending aorta dimension. IVC The inferior vena cava appears normal. CONCLUSIONS 1. Normal left ventricular and right ventricular size and systolic function. Left ventricular ejection fraction 60%. 2. Moderate hypertrophy of the left ventricular septum without left ventricular outflow tract obstruction. 3. Mild to moderate mitral valve regurgitation 4. Mild aortic valve regurgitation Carlito Wall (Electronically Signed) Final Date: 03 June 2025 12:06 S
[2025-06-01] MEDS: pantoprazole 40 mg SDV IVP (21:18)
--- NOTE | 2025-06-01 21:39 | P.HP_ITS ---
Providers/Chief Complaint 2 Admitting Physician: Umberto Nino MD Primary Care Provider: BASILIO Morrison Chief Complaint: left arm/leg numbness History of Present Illness Demetrius Hinkle is a 65 year old male with PMH CAD, HTN, dyslipidemia presenting with numbness over the left arm starting 4 days ago. States that about 9 months ago he developed left leg weakness and numbeness and he had suspected he may have had a stroke at that time. This gradually improved howwver 4 days ago he noticed that his left arm became heavy and numb. He did not lose power in the affected extremity. On the same, he also had a transient loss of vision in his left eye which has currently imporved however he still has blurred vision out of his left eye compared to the right side. Denies weakness in any other limb. He is prescribed for ASA 81, antihypertensives and statins however he stopped taking his medications few months ago as the cost went up on medicare. He has also been drinking on a daily basis as he has been upset about the cost of his care. Denies any chest pain, dyspnea, palpitations. Reports a past h/o CAD remotely. Denies headache photophobia or seizures Review of Systems 2 General: Reports: 10 or more systems reviewed and unremarkable except in HPI and below Const: Denies: fever(s), chills or body aches Eyes: Denies: change in vision, blurry vision or photophobia ENMT: Reports: hoarseness; Denies: throat pain, enlarged tonsils, odynophagia or nasal congestion Card: Denies: chest pain, palpitations, irregular heart rhythm, edema, swelling of feet/ankles, lightheadedness, pre-syncope, dyspnea on exertion or orthopnea Resp: Denies: dyspnea, productive cough, non-productive cough, wheezing, stridor, pain on inspiration, change in phlegm color, hemoptysis or chest congestion GI: Denies: abdominal pain, nausea, vomiting, hematemesis, coffee ground emesis, dysphagia, heartburn, diarrhea, constipation, GI cramping, change in stool character, hematochezia or melena : Denies: flank pain, dysuria, urinary frequency, urinary urgency, urinary hesitancy or hematuria Musc: Denies: neck pain, back pain, extremity pain, joint swelling, joint warmth or deformity Neuro: Denies: headache(s), numbness in extremities, weakness in extremities, sensory changes, difficulty walking, frequent falls, dizziness, vertigo, behavioral changes, Slurred speech present or seizure-like activity Psych: Denies: anxiety, depression, suicidal ideation or homicidal ideation Endo: Denies: polyuria, polydipsia, tired all the time, cold intolerance or hot flashes David/Lymph: Denies: easy bruising or easy bleeding Medications/Allergies Home Medications ?Medication ?Instructions ?Recorded ?Confirmed ?Last Taken ?Type potassium chloride 20 mEq 20 meq PO BID 08/20/2410/2108/19/24 History tablet,extended release(part/cryst) pantoprazole 40 mg tablet,delayed 40 mg PO BID 6 weeks #84 tabs 08/23/24 10/21/24 Unknown Rx release prednisone 20 mg tablet 20 mg PO DAILY #15 tabs 10/1010/21/24 Unknown Rx Allergies Allergy/AdvReac Type Severity Reaction Status Date / Time Penicillins Allergy Unknown Verified 06/01/25 16:52 PFSH Acute 2 PFSH: Medical History Hyperlipidemia Smoker Coronary artery disease Hypertension Left inguinal hernia COPD (chronic obstructive pulmonary disease) Right hydrocele Surgically repaired June 2020. No complications. Did well no further work-up indicated Surgical History History of hydrocelectomy H/O left knee surgery H/O circumcision H/O heart artery stent Hx of tonsillectomy Family History Father Cancer LUNG Hypertension Denies family history of Anesthesia complication Bleeding disorder Social History Smoking and tobacco/nicotine status: current every day tobacco/nicotine user cigarettes Alcohol intake: former Substance/Drug Use: current Substance/Drug use frequency: daily Lives independently: Yes Marital status: Current occupational status: disabled Vitals/I&O/Wt Last Vital Signs Temp 98.7 F 06/01/25 16:47 Pulse 79 06/01/25 20:30 BP 114/97 06/01/25 20:30 Pulse Ox 92 06/01/25 20:30 O2 Del Method Room Air 06/01/25 20:30 Weight last 48 hrs Weight 61.235 kg Physical Exam 2 Narrative: General: No acute distress, AO x3 HEENT: PERRLA, pupils bilaterally equal and reactive, pallors not present Chest: Normal vesicular breath sounds, no added sounds, equal good air entry bilaterally CVS: S1-S2 regular, no murmurs, no tachycardia, no gallops, no rubs Abdomen: Soft, nontender, no organomegaly, bowel sounds present Neuro: NIHSS 2 (alert-0, both questions right -0, perfroms both tasks-0, normal EOMI-0, partial hemianopia - 1, normal facial symmetry -0, no drift in either arm or leg-0, no limb ataxia, mild-mod loss left arm 1, no apahsia-0,no dysarthria or inattention) Data 06/01/25 17:22 06/01/25 17:22 Other data: Radiology Impressions Chest X-Ray 06/01/25 17:00 IMPRESSION: No acute findings. Head CT 06/01/25 17:00 IMPRESSION: 1. Evolving subacute versus chronic right occipital lobe infarct. Please correlate for possible visual field deficits. 2. Recommend MRI brain for further evaluation. ADDENDUM: 06/01/25 [id number] THIS REPORT CONTAINS FINDINGS THAT MAY BE CRITICAL TO PATIENT CARE. The findings were verbally communicated via telephone conference with KALIE GERONIMO at 5:43 PM CDT on 06/01/2025. The findings were acknowledged and understood. Cervical Spine CT 06/01/25 17:01 IMPRESSION: Multilevel cervical spondylosis featuring moderate central stenosis at C5-C6. Head/Neck CTA 06/01/25 18:16 IMPRESSION: 1. No large vessel stenosis or occlusion. 2. Ill-defined hypoattenuation within the right occipital lobe remains concerning for acute to subacute ischemia. This could be further assessed with MRI. IMPRESSION: 1. Occlusion of the right internal carotid artery at the level of the carotid bifurcation with distal reconstitution along the carotid siphon. This may be a chronic finding as acute occlusion could result in a large area of acute brain ischemia. Correlate with clinical findings and course of symptoms. 2. Occlusion of the right vertebral artery along the V1 segment and majority of the V2 segment with reconstitution at the C3 level. Short-segment occlusion also seen along the horizontal portion of the V3 segment. Distal reconstitution. The left vertebral artery appears patent throughout. 3. 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 REFERENCES: NASCET CRITERIA. The degree of stenosis in the cervical segment of the internal carotid artery is based on NASCET criteria. Normal is no stenosis. Mild is less than 50% stenosis. Moderate is 50-69% stenosis. Severe is 70% to 99% stenosis. Total occlusion is no detectable patent lumen. THIS REPORT CONTAINS FINDINGS THAT MAY BE CRITICAL TO PATIENT CARE. The findings were verbally communicated via telephone conference with KALIE GERONIMO at 6:54 PM CDT on 06/01/2025. The findings were acknowledged and understood. Laboratory Results WBC 8.12 10^3/uL (3.29-11.43) 06/01/25 17:22 RBC 4.79 10^6/uL (3.85-5.65) 06/01/25 17:22 Hgb 16.20 g/dL (11.27-16.99) 06/01/25 17:22 Hct 47.4 % (37-53) 06/01/25 17:22 MCV 99.0 fl (82-101) 06/01/25 17:22 MCH 33.8 pg (27-33) H 06/01/25 17:22 MCHC 34.2 g/dL (30-55) 06/01/25 17:22 RDW 14.1 % (12.1-15.1) 06/01/25 17:22 Plt Count 159 10^3/cmm (157-399) 06/01/25 17:22 MPV 10.7 fL (7.4-10.4) H 06/01/25 17:22 Neut % (Auto) 62.0 % 06/01/25 17:22 Lymph % (Auto) 27.3 % 06/01/25 17:22 Alcorn % (Auto) 8.6 % 06/01/25 17:22 Eos % (Auto) 0.7 % 06/01/25 17:22 Baso % (Auto) 0.9 % 06/01/25 17:22 Neut # (Auto) 5.03 10^3/uL (1.8-7.7) 06/01/25 17:22 Lymph # (Auto) 2.2 10^3/uL (0.8-4.8) 06/01/25 17:22 Alcorn # (Auto) 0.7 10^3/uL (0.2-0.9) 06/01/25 17:22 Eos # (Auto) 0.1 10^3/uL (0.0-0.8) 06/01/25 17:22 Baso # (Auto) 0.1 10^3/uL (0.0-0.1) 06/01/25 17:22 Nucleated RBC % (auto) 0 % 06/01/25 17:22 Nucleated RBCs # 0.0 /100WBC 06/01/25 17:22 PT 12.80 SECONDS (12.1-14.9) 06/01/25 17:22 INR 0.90 (0.8-1.2) 06/01/25 17:22 APTT 29.0 SECONDS (23.9-36.7) 06/01/25 17:22 Sodium 137 mmol/L (136-145) 06/01/25 17:22 Potassium 3.2 mmol/L (3.5-5.1) L 06/01/25 17:22 Chloride 100 mmol/L (98-107) 06/01/25 17:22 Carbon Dioxide 24 mmol/L (22-29) 06/01/25 17:22 Anion Gap 16.2 (5-19) 06/01/25 17:22 BUN 11 mg/dL (8-23) 06/01/25 17:22 Creatinine 0.9 mg/dL (0.7-1.2) 06/01/25 17:22 GFR Calculation 84.7 mL/min (90-130) L 06/01/25 17:22 Glucose 104 mg/dL (65-115) 06/01/25 17:22 Estimat Average Glucose 94 06/01/25 21:47 Hemoglobin A1c 4.9 % (4.0-6.0) 06/01/25 21:47 Calculated Osmolality 284 mOsm/kg (285-295) L 06/01/25 17:22 Lactic Acid 1.1 mmol/L (0.5-2.2) 06/01/25 21:47 Calcium 8.8 mg/dL (8.5-10.5) 06/01/25 17:22 Iron 64 ug/dL (59-158) 06/01/25 21:47 TIBC 206 mcg/dl 06/01/25 21:47 % Saturation 31.0 % (20-50) 06/01/25 21:47 Unsat Iron Binding 142 ug/dL (112-347) 06/01/25 21:47 Total Bilirubin 1.3 mg/dL (0.15-1.2) H 06/01/25 17:22 AST 25 U/L (0-40) 06/01/25 17:22 ALT 16 U/L (0-41) 06/01/25 17:22 Alkaline Phosphatase 113 U/L (40-130) 06/01/25 17:22 Troponin T 5th Gen ng/L 17 ng/L (0-15) H 06/01/25 21:47 Total Protein 6.6 g/dL (6.6-8.7) 06/01/25 17:22 Albumin 3.7 g/dL (3.5-5.2) 06/01/25 17:22 Globulin 2.9 g/dL (1.3-4.6) 06/01/25 17:22 Vitamin B12 605 pg/mL (232-1245) 06/01/25 21:47 Procalcitonin 0.09 ng/mL (0-0.5) 06/01/25 21:47 TSH 1.92 uIU/mL (0.27-4.20) 06/01/25 21:47 Urine Color Evergreen (Yellow) A 06/01/25 19:30 Urine Appearance Clear (CLEAR) 06/01/25 19:30 Urine pH 5.5 (5-7) 06/01/25 19:30 Ur Specific Hamilton 1.079 (1.005-1.030) H 06/01/25 19:30 Urine Protein 1+ (Negative) A 06/01/25 19:30 Urine Glucose (UA) Negative (Normal) 06/01/25 19:30 Urine Ketones Negative (Negative) 06/01/25 19:30 Urine Blood Negative (Negative) 06/01/25 19: Urine Nitrate Positive (Negative) A 06/01/25 19:30 Urine Bilirubin 1+ (Negative) H 06/01/25 19:30 Urine Urobilinogen 1.0 mg/dL (Negative) 06/01/25 19:30 Ur Leukocyte Esterase Negative (Negative) 06/01/25 19:30 Urine RBC 0-2 /hpf (0-2) 06/01/25 19:30 Urine WBC 0-5 /hpf (0-5) 06/01/25 19:30 Ur Squamous Epith Cells 0-5 /hpf (0-5) 06/01/25 19:30 Amorphous Sediment Not Reportable 06/01/25 19:30 Urine Bacteria None seen /hpf (NONE) 06/01/25 19:30 Hyaline Casts 0-4 /lpf H 06/01/25 19:30 Urine Opiates Screen Negative ng/mL (Negative) 06/01/25 19:30 Ur Barbiturates Screen Negative ng/mL (Negative) 06/01/25 19:30 Ur Phencyclidine Scrn Negative ng/mL (Negative) 06/01/25 19:30 Ur Amphetamines Screen Negative ng/mL (Negative) 06/01/25 19:30 U Benzodiazepines Scrn Negative ng/mL (Negative) 06/01/25 19:30 Urine Cocaine Screen Negative ng/mL (Negative) 06/01/25 19:30 U Marijuana (THC) Screen Positive ng/mL (Negative) H 06/01/25 19:30 A&P Assessment and plan 1. Cerebrovascular accident: Admit the patient to [facility] for close neuro monitoring he is not a tPA candidate , symptoms ~ 4 days at this point telemetry monitoring on the unit to evaluate for underlying arrhythmias. CT head shows Evolving subacute versus chronic right occipital lobe infarct. CTA head and neck No large vessel stenosis or occlusion intracranial. Noted hypoattenuation within the right occipital lobe concerning for acute to subacute ischemia. Occlusion of the right internal carotid artery at the level of the carotid bifurcation with distal reconstitution along the carotid siphon. This may be a chronic finding . 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 Echocardiogram ordered and pending Start aspirin 81 mg daily Atorvastatin 40 mg daily Will need to be restarted on antihypertensive regimen after monitoring trend Hba1c and lipid panel screen PT OT speech therapy assessment neurology/stroke team was called by ER 2. Hypertension: monitor BP trend, currently 108/62 at time of assessment 3. Hyperlipidemia: started atorvastatin 40mg po daily 4. Alcohol use disorder: counselled against daily alcohol use No signs of withdrawal currently monitor closely Last drink was prior to ER arrival today Plan: DVT ppx: Lovenox 40mg s/c daily Full code PDMP PDMP Reviewed: Not Reviewed Attestations 2 Medical Necessity Statement*: > 2 midnight stay is anticipated Coding Level of Care Code Acute Code for Chg Fwd High MDM includes number and complexity of problems actively addressed during encounter, amount and/or complexity of data reviewed/ordered and described risk of complication, morbidity or mortality of management as documented Diagnoses Cerebrovascular accident I63.9 Hypertension I10 Hyperlipidemia E78.5 Alcohol use disorder F10.90
[2025-06-01 22:19] LABS: Troponin T (5th) Once 17 ng/L (0-15)
[2025-06-01 22:21] LABS: Lactic Sepsis W/Reflex 1.1 mmol/L (0.5-2.2)
[2025-06-01 22:22] LABS: Estmated Average Glucose 94; Hemoglobin A1C 4.9 % (4.0-6.0)
[2025-06-02] VITALS (27 sets, daily range): BP systolic 101–146; BP diastolic 55–96; PULSE 60–72; RESP 15–18; TEMP 36.7–36.8; O2SAT 90–98
[2025-06-02 00:31] LABS: Procalcitonin 0.09 ng/mL (0-0.5); Thyroid Stimulating Hormone 1.92 uIU/mL (0.27-4.20); Vitamin B12 605 pg/mL (232-1245)
[2025-06-02 00:41] LABS: Iron 64 ug/dL (59-158); Total Iron Binding Capacity 206 mcg/dl; Unsaturated Iron Binding 142 ug/dL (112-347)
[2025-06-02 04:26] LABS: Hematocrit 40.0 % (37-53); Hemoglobin 13.70 g/dL (11.27-16.99); Mean Corpuscular HGB Conc 34.3 g/dL (30-55); Mean Corpuscular Hemoglobin 33.7 pg (27-33); Mean Corpuscular Volume 98.5 fl (82-101); Nucleated Red Blood Cells % 0 %; Platelet Count 137 10^3/cmm (157-399); Red Blood Count 4.06 10^6/uL (3.85-5.65); White Blood Count 5.56 10^3/uL (3.29-11.43)
[2025-06-02 04:43] LABS: Alanine Aminotransferase 11 U/L (0-41); Albumin Level 2.8 g/dL (3.5-5.2); Alkaline Phosphatase 87 U/L (40-130); Anion Gap 13.6 (5-19); Aspartate Amino Transferase 15 U/L (0-40); Blood Urea Nitrogen 12 mg/dL (8-23); Calcium 7.9 mg/dL (8.5-10.5); Carbon Dioxide 25 mmol/L (22-29); Chloride 101 mmol/L (98-107); Creatinine Clr Calc Pharmacy 87.1276; Globulin 2.2 g/dL (1.3-4.6); Glucose 86 mg/dL (65-115); Magnesium 1.8 mg/dL (1.7-2.3); Osmolality Calculated 283 mOsm/kg (285-295); Sodium 137 mmol/L (136-145); Total Protein 5.0 g/dL (6.6-8.7)
[2025-06-02 04:45] LABS: Cholesterol 72 mg/dL (0-200); HDL Cholesterol 48 mg/dL (60-100); Potassium 2.6 mmol/L (3.5-5.1); Triglycerides 41 mg/dL (0-150)
[2025-06-02 04:53] LABS: Procalcitonin 0.07 ng/mL (0-0.5)
--- NOTE | 2025-06-02 04:58 | PC.NURSE ---
This database report writer attempted to call provider at [phone] to notify of Potassium 2.6. No answer, message left.
--- OUTSIDE RECORDS SUMMARY | 2025-06-02 06:14 | XMS_ITS | Patient Health Record ---
Author Organization [facility] [facility] Address [address] [place] [id number] Support Name Relationship Address Phone Arin Demetrius Guarantor Unknown [phone] Allergies Allergen (clinical drug ingredient) Drug/Non Drug [...] Problem Status W/U Status Risk Notes Problem 187960338 H/O heart artery stent (Z95.5) Active confirmed Problem [id number] Hypertension, unspecified type (I10) Active confirmed Plan Of Treatment Pending Test Test Name Order Date Urinalysis, Routine 09/24/2021 Vision Screening 09/24/2021 Hearing Screening 09/24/2021 Insurance Providers Payer Name Payer Address Payer Phone Subscriber Number Group Number Insured Name Patient Relationship to Insured Coverage Start Date Coverage End Date Meka WOLFE Physical Recerts/Ra ndtracy/Oliver [email or web address] Demetrius Hinkle Self - patient is the insured Medical (General) History Medical History History ICD Code 2015 Heart Attack 2015 Heart Stints 2019 Hernia 2019 Testicle growths removed Surgical History Surgery Date(Month/Year) Hernia 2019 Testicle Growth removed 2019 Heart attack with stinits 2014
--- OUTSIDE RECORDS SUMMARY | 2025-06-02 06:15 | XMS_ITS | Clinical Summary ---
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8 cm (5' 10 ) 01/07/2017 8:41 AM ACCESS SERVICES ASSISTANT Body Mass Index 23.24 01/07/2017 8:41 AM ACCESS SERVICES ASSISTANT Plan of Treatment Health Maintenance Due [...] series) 2035 Medical Devices Implanted Type Area Gas Meter Checker Device Identifier Shelf Expiration Date Model / Serial / Lot Tk [id number]/07/2017 Implanted:2016 (Quantity not on file) Stent Advance Directives For more information, please contact: [phone] * Full Code (Latest Code Status on File) Date Activated Date Inactivated Comments 01/07/2017 8:32 AM 01/08/2017 6:03 PM
--- OUTSIDE RECORDS SUMMARY | 2025-06-02 06:15 | XMS_ITS | Clinical Summary ---
Author Organization [employer] [facility] Address [address] 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 01/08/2017 Chewing [...] on file Legal Sex Male 3:19 AM NURSE ANESTHESIA PROGRAM DIRECTOR Gender Identity Not on file Sexual Orientation Not on file Last Filed Vital Signs Vital Sign Reading Time Taken Comments Blood Pressure 124/74 01/08/2017 8:25 AM NURSE ANESTHESIA PROGRAM DIRECTOR Pulse - - Temperature 36.7 C (98.1 F) 01/08/2017 5:43 AM NURSE ANESTHESIA PROGRAM DIRECTOR Respiratory Rate 18 01/08/2017 5:43 AM NURSE ANESTHESIA PROGRAM DIRECTOR Oxygen Saturation - - Inhaled Oxygen Concentration - - Weight 73.5 kg (162 lb) 01/07/2017 8:41 AM NURSE ANESTHESIA PROGRAM DIRECTOR Height 177.8 cm (5' 10 ) 01/07/2017 8:41 AM NURSE ANESTHESIA PROGRAM DIRECTOR Body Mass Index 23.24 01/07/2017 8:41 AM NURSE ANESTHESIA PROGRAM DIRECTOR Plan of Treatment Health Maintenance Due Date [...] series) 2035 Medical Devices Implanted Type Area Treadle Cut Off Saw Operator Device Identifier Shelf Expiration Date Model / Serial / Lot [id number]/07/2017 Implanted:2016 (Quantity not on file) Stent
--- NOTE | 2025-06-02 11:00 | P.DS_ITS ---
Discharge Providers Date of Admission: 06/02/25 06:12 Date of Discharge: June 02, 2025 Attending Provider at Admission: Umberto Nino MD Attending Provider at Discharge: Umberto Nino MD Primary Care Provider: BASILIO Morrison Diagnoses at Discharge Discharge Diagnosis 1. Cerebrovascular accident: 2. Essential hypertension: 3. Mixed hyperlipidemia: 4. Alcohol use disorder: Reason for Visit Reason for Visit: left arm/leg numbness Brief History: As per HPI: Demetrius Hinkle is a 65 year old male with PMH CAD, HTN, dyslipidemia presenting with numbness over the left arm starting 4 days ago. States that about 9 months ago he developed left leg weakness and numbeness and he had suspected he may have had a stroke at that time. This gradually improved however 4 days ago he noticed that his left arm became heavy and numb. He did not lose power in the affected extremity. On the same, he also had a transient loss of vision in his left eye which has currently imporved however he still has blurred vision out of his left eye compared to the right side. Denies weakness in any other limb. He is prescribed for ASA 81, antihypertensives and statins however he stopped taking his medications few months ago as the cost went up on medicare. He has also been drinking on a daily basis as he has been upset about the cost of his care. Denies any chest pain, dyspnea, palpitations. Reports a past h/o CAD remotely. Denies headache photophobia or seizures. Hospital Course Hospital Course Patient was admitted to hospital further evaluation and management of left limb weakness. On admission CT head and neck was done which was consistent with evolving subacute versus chronic right occipital lobe infarct along with occlusion of right internal carotid artery at carotid bifurcation and left subclavian artery severe stenosis with distal reconstitution. Patient was counseled in detail to maintain on oral medications going forward. For now he is agreeable. He has been started on DAPT along with statins. During hospitalization his blood pressure remained stable. Physical therapy and Occupational Therapy evaluations awaited. Safe discharge plan were discussed detail with the patient and he verbalized understanding and wanted to be discharged home. He has been discharged in medically stable condition to back home after PT and OT evaluation with advised to follow-up with PCP in 1 week, neurologist in 2 weeks and vascular surgery as an outpatient to discuss further management options regarding carotid artery stenosis. Physical Exam Narrative: General: No acute distress, AO x3 HEENT: PERRLA, pupils bilaterally equal and reactive, pallors not present Chest: Normal vesicular breath sounds, no added sounds, equal good air entry bilaterally CVS: S1-S2 regular, no murmurs, no tachycardia, no gallops, no rubs Abdomen: Soft, nontender, no organomegaly, bowel sounds present Neuro: NIHSS 2 (alert-0, both questions right -0, perfroms both tasks-0, normal EOMI-0, partial hemianopia - 1, normal facial symmetry -0, no drift in either arm or leg-0, no limb ataxia, mild-mod loss left arm 1, no apahsia-0,no dysarthria or inattention) Discharge Data Studies Completed and Pending Completed Studies During Hospitalization Category Date Time Status CT cervical spin wo con* [id number] Stat Cat Scan 06/01/25 17:[address] head wo con* [id number] Stat Cat Scan 06/01/25 17:00 Completed CTA head neck [CT angio headneck* [id number]] Stat Cat Scan 06/01/25 18:16 Completed XR chest 1V portable [id number] Stat Exams 06/01/25 17:00 Completed Pending at discharge Category Date Time Status Blood Culture Stat Lab 06/01/25 21:47 Results Complete Blood Count w/Auto AM LABS Lab 06/03/25 04:00 Ordered Complete Blood Count w/Auto AM LABS Lab 06/04/25 04:00 Ordered Comprehensive Metabolic Panel AM LABS Lab 06/03/25 04:00 Ordered Comprehensive Metabolic Panel AM LABS Lab 06/04/25 04:00 Ordered Magnesium AM LABS Lab 06/03/25 04:00 Ordered Magnesium AM LABS Lab 06/04/25 04:00 Ordered Phosphorus AM LABS Lab 06/03/25 04:00 Ordered Phosphorus AM LABS Lab 06/04/25 04:00 Ordered CV. echo complete* [id number] Routine Ultrasound 06/01/25 20:44 Taken Radiology Impressions Chest X-Ray 06/01/25 17:00 IMPRESSION: No acute findings. Head CT 06/01/25 17:00 IMPRESSION: 1. Evolving subacute versus chronic right occipital lobe infarct. Please correlate for possible visual field deficits. 2. Recommend MRI brain for further evaluation. ADDENDUM: 06/01/25 0424 THIS REPORT CONTAINS FINDINGS THAT MAY BE CRITICAL TO PATIENT CARE. The findings were verbally communicated via telephone conference with KALIE GERONIMO at 5:43 PM CDT on 06/01/2025. The findings were acknowledged and understood. Cervical Spine CT 06/01/25 17:01 IMPRESSION: Multilevel cervical spondylosis featuring moderate central stenosis at C5-C6. Head/Neck CTA 06/01/25 18:16 IMPRESSION: 1. No large vessel stenosis or occlusion. 2. Ill-defined hypoattenuation within the right occipital lobe remains concerning for acute to subacute ischemia. This could be further assessed with MRI. IMPRESSION: 1. Occlusion of the right internal carotid artery at the level of the carotid bifurcation with distal reconstitution along the carotid siphon. This may be a chronic finding as acute occlusion could result in a large area of acute brain ischemia. Correlate with clinical findings and course of symptoms. 2. Occlusion of the right vertebral artery along the V1 segment and majority of the V2 segment with reconstitution at the C3 level. Short-segment occlusion also seen along the horizontal portion of the V3 segment. Distal reconstitution. The left vertebral artery appears patent throughout. 3. 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 REFERENCES: NASCET CRITERIA. The degree of stenosis in the cervical segment of the internal carotid artery is based on NASCET criteria. Normal is no stenosis. Mild is less than 50% stenosis. Moderate is 50-69% stenosis. Severe is 70% to 99% stenosis. Total occlusion is no detectable patent lumen. THIS REPORT CONTAINS FINDINGS THAT MAY BE CRITICAL TO PATIENT CARE. The findings were verbally communicated via telephone conference with KALIE GERONIMO at 6:54 PM CDT on 06/01/2025. The findings were acknowledged and understood. Laboratory Results WBC 5.56 10^3/uL (3.29-11.43) 06/02/25 04:20 RBC 4.06 10^6/uL (3.85-5.65) 06/02/25 04:20 Hgb 13.70 g/dL (11.27-16.99) 06/02/25 04:20 Hct 40.0 % (37-53) 06/02/25 04:20 MCV 98.5 fl (82-101) 06/02/25 04:20 MCH 33.7 pg (27-33) H 06/02/25 04:20 MCHC 34.3 g/dL (30-55) 06/02/25 04:20 RDW 13.9 % (12.1-15.1) 06/02/25 04:20 Plt Count 137 10^3/cmm (157-399) L 06/02/25 04:20 MPV 10.4 fL (7.4-10.4) 06/02/25 04:20 Neut % (Auto) 43.7 % 06/02/25 04:20 Lymph % (Auto) 44.6 % 06/02/25 04:20 [place] % (Auto) 8.5 % 06/02/25 04:20 Eos % (Auto) 1.3 % 06/02/25 04:20 Baso % (Auto) 1.4 % 06/02/25 04:20 Neut # (Auto) 2.43 10^3/uL (1.8-7.7) 06/02/25 04:20 Lymph # (Auto) 2.5 10^3/uL (0.8-4.8) 06/02/25 04:20 [place] # (Auto) 0.5 10^3/uL (0.2-0.9) 06/02/25 04:20 Eos # (Auto) 0.1 10^3/uL (0.0-0.8) 06/02/25 04:20 Baso # (Auto) 0.1 10^3/uL (0.0-0.1) 06/02/25 04:20 Nucleated RBC % (auto) 0 % 06/02/25 04:20 Nucleated RBCs # 0.0 /100WBC 06/02/25 04:20 PT 12.80 SECONDS (12.1-14.9) 06/01/25 17:22 INR 0.90 (0.8-1.2) 06/01/25 17:22 APTT 29.0 SECONDS (23.9-36.7) 06/01/25 17:22 Sodium 137 mmol/L (136-145) 06/02/25 04:20 Potassium 2.6 mmol/L (3.5-5.1) L* 06/02/25 04:20 Chloride 101 mmol/L (98-107) 06/02/25 04:20 Carbon Dioxide 25 mmol/L (22-29) 06/02/25 04:20 Anion Gap 13.6 (5-19) 06/02/25 04:20 BUN 12 mg/dL (8-23) 06/02/25 04:20 Creatinine 0.8 mg/dL (0.7-1.2) 06/02/25 04:20 GFR Calculation 97.0 mL/min (90-130) 06/02/25 04:20 Glucose 86 mg/dL (65-115) 06/02/25 04:20 Estimat Average Glucose 94 06/01/25 21:47 Hemoglobin A1c 4.9 % (4.0-6.0) 06/01/25 21:47 Calculated Osmolality 283 mOsm/kg (285-295) L 06/02/25 04:20 Lactic Acid 1.1 mmol/L (0.5-2.2) 06/01/25 21:47 Calcium 7.9 mg/dL (8.5-10.5) L 06/02/25 04:20 Phosphorus 3.4 mg/dL (2.5-4.5) 06/02/25 04:20 Magnesium 1.8 mg/dL (1.7-2.3) 06/02/25 04:20 Iron 64 ug/dL (59-158) 06/01/25 21:47 TIBC 206 mcg/dl 06/01/25 21:47 % Saturation 31.0 % (20-50) 06/01/25 21:47 Unsat Iron Binding 142 ug/dL (112-347) 06/01/25 21:47 Total Bilirubin 1.3 mg/dL (0.15-1.2) H 06/02/25 04:20 AST 15 U/L (0-40) 06/02/25 04:20 ALT 11 U/L (0-41) 06/02/25 04:20 Alkaline Phosphatase 87 U/L (40-130) 06/02/25 04:20 Troponin T 5th Gen ng/L 17 ng/L (0-15) H 06/01/25 21:47 Total Protein 5.0 g/dL (6.6-8.7) L D 06/02/25 04:20 Albumin 2.8 g/dL (3.5-5.2) L 06/02/25 04:20 Globulin 2.2 g/dL (1.3-4.6) 06/02/25 04:20 Triglycerides 41 mg/dL (0-150) 06/02/25 04:20 Cholesterol 72 mg/dL (0-200) 06/02/25 04:20 LDL Cholesterol, Calc 16 mg/dL (50-129) L 06/02/25 04:20 HDL Cholesterol 48 mg/dL (60-100) L 06/02/25 04:20 LDL/HDL Ratio 0.33 RATIO (0.00-3.22) 06/02/25 04:20 Cholesterol/HDL Ratio 1.50 mg/dL (1.0-5.00) 06/02/25 04:20 Vitamin B12 605 pg/mL (232-1245) 06/01/25 21:47 Folate 3.9 ng/mL (4.5-32.2) L 06/02/25 04:20 Procalcitonin 0.07 ng/mL (0-0.5) 06/02/25 04:20 TSH 1.92 uIU/mL (0.27-4.20) 06/01/25 21:47 Urine Color [place] (Yellow) A 06/01/25 19:30 Urine Appearance Clear (CLEAR) 06/01/25 19:30 Urine pH 5.5 (5-7) 06/01/25 19:30 Ur Specific [place] 1.079 (1.005-1.030) H 06/01/25 19:30 Urine Protein 1+ (Negative) A 06/01/25 19:30 Urine Glucose (UA) Negative (Normal) 06/01/25 19:30 Urine Ketones Negative (Negative) 06/01/25 19:30 Urine Blood Negative (Negative) 06/01/25 19:30 Urine Nitrate Positive (Negative) A 06/01/25 19:30 Urine Bilirubin 1+ (Negative) H 06/01/25 19:30 Urine Urobilinogen 1.0 mg/dL (Negative) 06/01/25 19:30 Ur Leukocyte Esterase Negative (Negative) 06/01/25 19:30 Urine RBC 0-2 /hpf (0-2) 06/01/25 19:30 Urine WBC 0-5 /hpf (0-5) 06/01/25 19:30 Ur Squamous Epith Cells 0-5 /hpf (0-5) 06/01/25 19:30 Amorphous Sediment Not Reportable 06/01/25 19:30 Urine Bacteria None seen /hpf (NONE) 06/01/25 19:30 Hyaline Casts 0-4 /lpf H 06/01/25 19:30 Urine Opiates Screen Negative ng/mL (Negative) 06/01/25 19:30 Ur Barbiturates Screen Negative ng/mL (Negative) 06/01/25 19:30 Ur Phencyclidine Scrn Negative ng/mL (Negative) 06/01/25 19:30 Ur Amphetamines Screen Negative ng/mL (Negative) 06/01/25 19:30 U Benzodiazepines Scrn Negative ng/mL (Negative) 06/01/25 19:30 Urine Cocaine Screen Negative ng/mL (Negative) 06/01/25 19:30 U Marijuana (THC) Screen Positive ng/mL (Negative) H 06/01/25 19:30 Vitals Last Vital Signs Temp 98.3 F 06/02/25 08:00 Pulse 63 06/02/25 08:06 Resp 15 06/02/25 08:00 BP 146/96 06/02/25 08:06 Pulse Ox 95 06/02/25 08:06 O2 Del Method Room Air 06/02/25 09:48 Discharge Plan Discharge Patient Disposition: Home Condition: Stable Prescriptions: New aspirin 81 mg Tablet,Delayed Release (Dr/Ec) 81 mg PO DAILY Qty: 30 0RF atorvastatin [Lipitor] 10 mg tablet 10 mg PO DAILY Qty: 30 0RF clopidogrel [Plavix] 75 mg tablet 75 mg PO DAILY Qty: 30 0RF No Action No Known Home Medications [facility]errals: [facility] [Outside] Referral Note: We have faxed your information to [facility] of the need for a follow-up appointment to be scheduled. If you have not heard from them within the next 2 business days, please call them directly. Barby Flores MD [Physician, Neurology] - 2 weeks Referral Note: We have notified your physician's clinic of the need for a follow-up appointment to be scheduled. If you have not heard from them within the next 2 business days, please call them directly. Deepthi Colindres FNP [Primary Care Provider, Nurse Practitioner] - 06/08/25 9:30 am Discharge Diet: Cardiac Discharge Activity: Resume usual activity and Increase activity as tolerated Patient Instructions: Opioid Safety, Patient Portal & Key Instructions Activity Restrictions/Additional Instructions: Check your blood pressure daily at home maintain a blood pressure diary. Goal blood pressure of less than 140/90 mmHg. Please make sure you continue to take your aspirin, Plavix as prescribed. Follow-up with your primary care provider within next 1 week and with neurologist in 2 weeks. You also need to follow-up with vascular surgery team as an outpatient for further management options for internal carotid artery stenosis. Discharge Attestations Time Spent in Discharge Care*: greater than 30 min Specific Discharge Activities: educating patient, educating and/or supporting family/caregiver, discussing with pcp/other providers, discussing with director of casework/social workers/dc planners, documenting/other paperwork and evaluating patient/reviewing data Status at Discharge: Cognitive status at discharge: cognitively intact , Behavioral status at discharge: cooperative , Functional status at discharge: uses cane/walker , Overall status at discharge: patient is progressing back to baseline Quality Metrics Clinical Quality Measures [ Cerebrovascular Accident { Contraindication to Antithrombotic: None; antithrombotic prescribed; Contraindication to Anticoagulation: Overlap treatment not indicated; Contraindication to Statin: None; Statin prescribed; Contraindication to tPA: Did not meet criteria;}] Coding Level of Care Code 89193 Total time (in minutes) for Discharge: 65 Diagnoses Cerebrovascular accident I63.9 Essential hypertension I10 Hypertension type: essential hypertension Mixed hyperlipidemia E78.2 Hyperlipidemia type: mixed hyperlipidemia Alcohol use disorder F10.90
[2025-06-02 15:00] LABS: Potassium 3.5 mmol/L (3.5-5.1)
--- NOTE | 2025-06-02 15:41 | PC.NURSE ---
IV removed and education provided to pt. Pt wanted to wait in the discharge waiting room upon signing paperwork so was taken via wheelchair to discharge waiting room. Pt refused to let staff cut his ID wristbands off before leaving.
== END 2025-06-02 15:49 | disposition home or self-care (01) | DRG 65 ==
LOC: ER 19:13 → ER IP 20:42 → MEDSURG 06-02 06:12
PROVIDERS: Admitting Provider Student in an Organized Health Care Education/Training Program; Emergency Provider Emergency Medicine; PCP Nurse Practitioner Family; Visit Provider Student in an Organized Health Care Education/Training Program
DX: I63.231 Cerebral infarction due to unspecified occlusion or stenosis of right carotid arteries (principal); Z59.11 Inadequate housing environmental temperature; H53.8 Other visual disturbances; I10 Essential (primary) hypertension; E78.2 Mixed hyperlipidemia; F10.10 Alcohol abuse, uncomplicated; I25.10 Atherosclerotic heart disease of native coronary artery without angina pectoris; F17.210 Nicotine dependence, cigarettes, uncomplicated; J44.9 Chronic obstructive pulmonary disease, unspecified; Z95.5 Presence of coronary angioplasty implant and graft; Z79.82 Long term (current) use of aspirin; Z86.73 Personal history of transient ischemic attack (TIA), and cerebral infarction without residual deficits; Z79.02 Long term (current) use of antithrombotics/antiplatelets; Z91.120 Patient's intentional underdosing of medication regimen due to financial hardship
CPT/HCPCS: 36415; 70450; 70496; 70498; 71045; 72125; 80053; 80061; 80306; 81001; 82607; 82746; 83036; 83540; 83550; 83605; 83735; 84100; 84132; 84145; 84443; 84484; 85025; 85610; 85730; 87040; 92523; 93306; 94664; 96372; 96374; 97116; 97161; 97165; 99285; J1650; J2470; J9999